=== PATIENT | female | born 1990 | race Caucasian/White ===

== ENCOUNTER → 2021-04-14 | Outpatient (CLI) | payer OTHER ==
[2021-04-14 15:29] VITALS: BP 156/93; PULSE 93; RESP 18; TEMP 98.3; BMI 48.5
--- NOTE | 2021-04-14 15:39 | P.HPBAR ---
Bariatric H&P - History & Physicial H&P Date: 04/14/21 History & Physicial: Visit/CC: initial visit Patient initial contact: Initial weight: Initial weight in pounds: Height: 5 ft 10.5 in Initial BMI: Last weight: Current weight: 155.582 kg Current weight in pounds: 343.00 Current BMI: 48.5 [place] body weight (based on NIH guidelines): 69.173 kg Excess body weight loss: The patient is a 31 year-old F who presents for Bariatric Assessment. Needs 6 months of weight loss. PCP is Charlene. Highest weight is 354 pounds. She has tried beach body, keto diet. Most weight loss of 20 pounds with keto diet. Parents, aunts, uncles and grandparents with weight loss. No weight loss surgeries in the family. She has lower back pain, right more than left knee. No hip pain. She has both ankle pain. No DVTs in the family. No colitis in the family. No bleeding problems. She has heartburn since 2016. She is looking into the gastric bypass. She snores. No recent test for sleep apnea. She has family history of diabetes. No stomach or esophageal cancer. She has troubles swallowing in the upper throat. Recommend EGD with rigid dilation for upper throat. All questions addressed. MBSC deferred. 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 pre-eclamspia. History of Any Multi-Drug Resistant Organisms: None Reported Past Surgical History: Adenoidectomy, Appendectomy, Cardiac Ablation, Tonsillectomy Additional Past Surgical History / Comment(s): emergency D & C - 2016. appendectomy - 2004. cardiac ablation - 2019. Past Anesthesia/Blood Transfusion Reactions: Previous Problems w/ Anesthesia Past Psychological History: Anxiety, Bipolar Additional Psychological History / Comment(s): bipolar 1. Smoking Status: Former smoker Past Alcohol Use History: Occasional Past Drug Use History: Marijuana Additional Drug Use History / Comment(s): occasional marijuana - "couple times a month". Surgical - Exam Vital Signs Temp Pulse Resp BP 98.3 F 93 18 156/93 04/14/21 15:07 04/14/21 15:07 04/14/21 15:07 04/14/21 15:07 Bariatric Checklist Checklist: Plan: Checklist: EGD: 1. Hiatal hernia: 2. H. Pylori: HgbA1c: Vitamin D: Smoking: Primary care physician referral: TOBY Rodriges ([place]) Psychiatry clearance: Cardiology clearance: Sleep study: Diet journal: VTE risk score: VTE risk level: Rehab needs at discharge:
[2021-04-14 17:04] LABS: HCT 36.8 % (34.0-46.0); MCH 26.5 pg (25.0-35.0); MCHC 32.6 g/dL (31.0-37.0); MCV 81.2 fL (80.0-100.0); Mean Platelet Volume 7.8; Platelet Count 272 k/uL (150-450); RBC 4.53 m/uL (3.80-5.40); RDW 14.2 % (11.5-15.5); WBC 9.8 k/uL (3.8-10.6)
[2021-04-14 17:29] LABS: INR 0.9 (<1.2); Partial Thromboplastin Time 24.7 sec (22.0-30.0); Prothrombin Time 10.1 sec (9.0-12.0)
[2021-04-15 04:51] LABS: % Iron Saturation 7.27 (12.00-45.00); ALT 19 U/L (8-44); AST 16 U/L (13-35); African American GFR (CKD) 111.7 (60.0-200.0); Albumin 4.3 g/dL (3.8-4.9); Albumin/Globulin Ratio 1.69 (1.60-3.17); Alkaline Phosphatase 66 U/L (41-126); BUN/Creat Ratio 11.27 Ratio (12.00-20.00); Blood Urea Nitrogen 9.3 mg/dL (9.0-27.0); Calcium 9.1 mg/dL (8.7-10.3); Carbon Dioxide 24.1 mmol/L (20.0-27.5); Chloride 103 mmol/L (96-109); Globulin 2.5 g/dL (1.6-3.3); Glucose 82 mg/dL (70-110); Iron 29 ug/dL (50-170); LDL Cholesterol,Calculated 121.2 mg/dL (0.0-131.0); Magnesium 2.3 mg/dL (1.5-2.4); Non-African American GFR(CKD) 96.4 (60.0-200.0); Phosphorus 3.6 mg/dL (2.4-5.1); Potassium 4.4 mmol/L (3.5-5.5); Prealbumin 18.8 mg/dL (18.0-42.0); Sodium 139 mmol/L (135-145); Total Bilirubin <0.20 mg/dL (0.30-1.20); Total Iron Binding Capacity 403 ug/dL (228-460); Total Protein 6.8 g/dL (6.2-8.2)
[2021-04-15 13:24] LABS: Zinc, Serum 54 ug/dL (60-130)
[2021-04-16 07:38] LABS: Vit B1(Thiamine) 77 ug/L (38-122)
[2021-04-16 07:50] LABS: Vitamin A 38 ug/dL (38-106)
== END | disposition home or self-care (01) ==
LOC: BARWHC3 14:50
PROVIDERS: ATTEND Surgery Plastic and Reconstructive Surgery
DX: E66.01 Morbid (severe) obesity due to excess calories (principal); E89.1 Postprocedural hypoinsulinemia; D50.8 Other iron deficiency anemias; K90.89 Other intestinal malabsorption; E55.9 Vitamin D deficiency, unspecified; K74.1 Hepatic sclerosis; N19 Unspecified kidney failure; K50.90 Crohn's disease, unspecified, without complications
CPT/HCPCS: 84255; 84134; 84425; 80061; 80053; 82607; 82728; 82525; 82746; 83540; 83550; 83735; 84100; 84443; 84590; 84630; 85027; 85610; 85730; 82306; 83970; 83036; 80307; 93005; G0480; G0482; G0463; 80323; 99203

== ENCOUNTER → 2021-09-08 | Outpatient (CLI) | payer OTHER ==
--- NOTE | 2021-09-08 18:39 | CONS ---
CONSULTATION DATE OF SERVICE: 09/08/2021 This 31-year-old lady has been evaluated in Sleep Center for obstructive sleep apnea- hypopnea syndrome. The patient was referred to Sleep Center as a part of preparation for bariatric surgery. HISTORY OF PRESENT ILLNESS/SLEEP-WAKE EVALUATION: The patient's usual sleep schedule is from 10 p.m. to 6 a.m. basically 7 days a week. Sometimes she has problems with falling asleep, has a TV set in the bedroom. She sleeps in different positions. She snores and wakes up from sleep 3 times with 2 episodes of nocturia. No history of hypnagogic hallucinations, sleep paralysis or cataplexy. During the day the patient usually does not take any naps. [place] Sleepiness Scale is 6. PAST MEDICAL HISTORY: Positive for supraventricular tachycardia, acid reflux, bipolar disorder. PAST SURGICAL HISTORY: Appendectomy, cardiac ablation for supraventricular tachycardia. MEDICATIONS: 1. Lamictal 250 mg twice a day. 2. Protonix 40 mg once a day. 3. Klonopin 0.5 mg on p.r.n. basis. SOCIAL HISTORY: Positive for smoking in the past, about 5 pack/years. Alcohol consumption occasional. FAMILY HISTORY: Positive for sleep apnea, snoring, heart problems, hypertension, mental illness. REVIEW OF SYSTEMS: Multiple awakenings from sleep, snoring. No fevers. No double vision. No recent chest pain. No shortness of breath. No abdominal pain. No bleeding episodes. No blood in the urine. No seizure episodes. PHYSICAL EXAMINATION: GENERAL: Pleasant lady without distress. VITAL SIGNS: BP 121/85, HR 91, RR 16, height 5 feet 10 inches, weight 332.2, body mass index 47.6, temperature 97.3, oxygen saturation at room air 97%. HEENT: PERRLA, EOMI, evaluation of oropharynx showed tongue protrudes midline. Low position of soft palate; Mallampati III. NECK: Supple, no JVD. Thyroid is not palpable. Neck is wide; 20 inches in circumference. LUNGS: Clear to percussion and to auscultation. Good air exchange. No wheezing or rhonchi. HEART: S1, S2 regular. No murmurs, gallops, or rubs. ABDOMEN: Obese. EXTREMITIES: No clubbing or cyanosis. SECOND CLASS WELDER: Awake, alert, and oriented X3. Cranial nerves 2 to 7 intact. There is no fasciculation or atrophy. noted. No focal deficits observed. IMPRESSION: 1. Snoring, multiple awakenings from sleep, low position of soft palate, wide neck, 20 inches in circumference; obstructive sleep apnea-hypopnea syndrome. 2. Obesity; BMI 47.6. 3. History of supraventricular tachycardia, status post cardiac ablation. 4. Acid reflux. 5. History of bipolar 1. 6. Status post appendectomy. PLAN: 1. Polysomnography for evaluation of patient's breathing during sleep. 2. CPAP/BiPAP titration if sleep study confirms obstructive sleep apnea-hypopnea syndrome. 3. Preferable position during sleep on the side. 4. No driving if patient feels any sleepiness. 5. I will see patient for follow up visit to explain results of testing and following plan. Thank you very much for referring this patient for consultation. Sincerely, Oscar Mahoney MD, PhD, FAASM Diplomat of [employer] Sleep Medicine Board of [place] [employer] [facility] [place] MMODL / IJN: [id number] /
== END | disposition home or self-care (01) ==
LOC: SLEEP 11:34
PROVIDERS: ATTEND Internal Medicine
DX: G47.33 Obstructive sleep apnea (adult) (pediatric) (principal); E66.9 Obesity, unspecified; K21.9 Gastro-esophageal reflux disease without esophagitis; Z68.42 Body mass index [BMI] 45.0-49.9, adult; Z86.79 Personal history of other diseases of the circulatory system; Z86.69 Personal history of other diseases of the nervous system and sense organs; Z90.49 Acquired absence of other specified parts of digestive tract
CPT/HCPCS: 99211

== ENCOUNTER 2021-10-06 10:28 | Day surgery (SDC) | payer OTHER ==
[~2021-10-06 10:28] MED LIST: LACTATED RINGERS 1,000 ML IV SCH; LIDOCAINE 1% (10MG/ML) FOR IV START INTRADERMA PRN
[2021-10-06 10:42] VITALS: TEMP 98
[2021-10-06] MEDS ORDERED: LACTATED RINGERS 1,000 ML IV ONE (10:42)
[2021-10-06] MEDS ORDERED: PROPOFOL 10 MG/ML 20 ML VIAL IV ONE (11:12)
[2021-10-06] MEDS ORDERED: LIDOCAINE 2% INJ 20 MG/ML (2 ML VIAL) ONE (11:12)
--- NOTE | 2021-10-06 11:32 | P.GSHP ---
History of Present Illness H&P Date: 10/06/21 CHIEF COMPLAINT: GERD HISTORY OF PRESENT ILLNESS: The patient is a 31-year-old female who presents reports gastroesophageal reflux disease. Upper endoscopy was offered for further evaluation and management. PAST MEDICAL HISTORY: Please see list. PAST SURGICAL HISTORY: Please see list. MEDICATIONS: Please see list. ALLERGIES: Please see list. SOCIAL HISTORY: No illicit drug use FAMILY HISTORY: No reports of Crohn disease or ulcerative colitis. REVIEW OF ORGAN SYSTEMS: CONSTITUTIONAL: No reports of fevers or chills. GI: Denies any blood in stools or constipation. PHYSICAL EXAM: VITAL SIGNS: Stable GENERAL: Well-developed and pleasant in no acute distress. HEENT: No scleral icterus. Extraocular movements grossly intact. Moist buccal mucosa. NECK: Supple without lymphadenopathy. CHEST: Unlabored respirations. Equal bilateral excursions. CARDIOVASCULAR: Regular rate and rhythm. Distal 2+ pulses. ABDOMEN: Soft, nondistended. MUSCULOSKELETAL: No clubbing, cyanosis, or edema. ASSESSMENT: 1. Gastroesophageal reflux disease PLAN: 1. Recommend proceeding with an upper endoscopy Past Medical History Past Medical History: Blood Disorder, GERD/Reflux, Hypertension, Sleep Apnea/CPAP/BIPAP, Supraventricular Tachycardia (SVT) Additional Past Medical History / Comment(s): anemia. recent sleep study & will be having 2nd study soon to be fitted for bipap History of Any Multi-Drug Resistant Organisms: None Reported Past Surgical History: Adenoidectomy, Appendectomy, Cardiac Ablation, Tonsillectomy Additional Past Surgical History / Comment(s): emergency D & C - 2016. appendectomy - 2004. cardiac ablation - 2019. Past Anesthesia/Blood Transfusion Reactions: Previous Problems w/ Anesthesia Additional Past Anesthesia/Blood Transfusion Reaction / Comment(s): took awhile to come out of anesthesia after ablation because gave "pain" meds prior & then was put out Smoking Status: Former smoker Medications and Allergies Home Medications Medication Instructions Recorded Confirmed Type clonazePAM [KlonoPIN] 0.5 mg PO BID PRN 04/14/21 10/05/21 History lamoTRIgine [LaMICtal] 250 mg PO BID 04/14/21 10/05/21 History Allergies Allergy/AdvReac Type Severity Reaction Status Date / Time No Known Allergies Allergy Verified 05/24/21 09:39 Surgical - Exam Vital Signs Temp Pulse Resp BP Pulse Ox 98 F 88 18 163/93 98 10/06/21 10:41 10/06/21 10:41 10/06/21 10:41 10/06/21 10:41 10/06/21 10:41
--- NOTE | 2021-10-06 11:33 | P.PCN ---
Date of Procedure: 10/06/21 Description of Procedure: PREOPERATIVE DIAGNOSIS: Gastroesophageal reflux disease. Morbid obesity. POSTOPERATIVE DIAGNOSIS: Gastroesophageal reflux disease. Morbid obesity. Gastritis. OPERATION: Esophagogastroduodenoscopy with biopsies along antrum and duodenum SURGEON: Janet Jane MD ANESTHESIA: MAC. INDICATIONS: The patient is a 31-year-old female who presents with reflux disease. Benefits and risks of the procedure were described. Informed consent was obtained. DESCRIPTION: The patient was brought into the endoscopy suite and laid in the left lateral decubitus position. An Olympus gastroscope was passed along the posterior oropharynx down to the distal esophagus where the squamocolumnar junction was encountered at 42 cm from the incisors. The stomach was entered and no bile reflux was found. Additional findings are listed below. Biopsies with cold forceps were obtained of the antrum. The first through third portion of the duodenum was examined. Retroflexion of the scope confirmed Hill grade 2 lower esophageal valve. The squamocolumnar junction demonstrated LA grade B erosive esophagitis. The stomach was desufflated. The patient tolerated the procedure well. FINDINGS: Squamocolumnar junction 42 cm from the incisors. Diaphragmatic hiatus at 42 cm. Hill grade 2 lower esophageal valve. LA grade B erosive esophagitis. Biopsies obtained of the duodenum for duodenitis Chronic gastritis RECOMMENDATIONS: Upper endoscopy as needed. Plan - Discharge Summary Discharge Rx Participant: No New Discharge Prescriptions: Continue clonazePAM [KlonoPIN] 0.5 mg PO BID PRN PRN Reason: Anxiety lamoTRIgine [LaMICtal] 250 mg PO BID Discharge Medication List clonazePAM [KlonoPIN] 0.5 mg PO BID PRN 04/14/21 [History] lamoTRIgine [LaMICtal] 250 mg PO BID 04/14/21 [History] [place] [facility] [facility] [place] [facility] [place] Patient Instructions/Handouts: *Sur[facility] - (Anesthesia) Endoscopy Discharge Instructions Discharge Disposition: HOME SELF-CARE
[2021-10-06 12:13] VITALS: BP 141/95; PULSE 71; RESP 16
== END 2021-10-06 12:18 | disposition home or self-care (01) ==
LOC: ORWHC2ENDO 10:28
PROVIDERS: ATTEND Surgery Plastic and Reconstructive Surgery
DX: K21.9 Gastro-esophageal reflux disease without esophagitis (principal); E66.01 Morbid (severe) obesity due to excess calories; Z68.42 Body mass index [BMI] 45.0-49.9, adult; I10 Essential (primary) hypertension; G47.33 Obstructive sleep apnea (adult) (pediatric); I47.1 Supraventricular tachycardia; D64.9 Anemia, unspecified; Z90.49 Acquired absence of other specified parts of digestive tract; Z98.890 Other specified postprocedural states; Z79.899 Other long term (current) drug therapy
CPT/HCPCS: 81025; 88305; 43239; J2704; J2001

== ENCOUNTER → 2021-11-22 | Outpatient (CLI) | payer OTHER ==
[2021-11-22 11:42] VITALS: BMI 44.4
[2021-11-22 12:31] LABS: INR 0.9 (<1.2); Partial Thromboplastin Time 24.1 sec (22.0-30.0); Prothrombin Time 10.3 sec (9.0-12.0)
[2021-11-22 14:20] LABS: HCT 39.6 % (37.2-46.3); HGB 12.2 g/dL (12.0-15.0); MCH 25.8 pg (27.0-32.0); MCHC 30.8 g/dL (32.0-37.0); MCV 83.7 fL (80.0-97.0); Mean Platelet Volume 10.4 fL (9.5-12.2); NRBC Per 100 WBC 0 /100 WBCS (0.0-0.0); Platelet Count 311 X 10*3/uL (140-440); RBC 4.73 X 10*6/uL (4.10-5.20); RDW 13.2 % (11.5-14.5)
[2021-11-22 14:38] LABS: % Iron Saturation 9.84 (12.00-45.00); ALT 20 U/L (8-44); AST 19 U/L (13-35); African American GFR (CKD) 104.5 (60.0-200.0); Albumin 4.5 g/dL (3.8-4.9); Albumin/Globulin Ratio 1.51 (1.60-3.17); Alkaline Phosphatase 64 U/L (41-126); BUN/Creat Ratio 10.86 Ratio (12.00-20.00); Blood Urea Nitrogen 9.4 mg/dL (9.0-27.0); Calcium 9.7 mg/dL (8.7-10.3); Carbon Dioxide 23.9 mmol/L (20.0-27.5); Chloride 106 mmol/L (96-109); Ferritin 89.9 ng/mL (10.0-291.0); Glucose 87 mg/dL (70-110); Iron 30 ug/dL (50-170); Magnesium 2.4 mg/dL (1.5-2.4); Non-African American GFR(CKD) 90.2 (60.0-200.0); Phosphorus 3.6 mg/dL (2.4-5.1); Potassium 4.5 mmol/L (3.5-5.5); Sodium 141 mmol/L (135-145); Total Iron Binding Capacity 308 ug/dL (228-460); Total Protein 7.5 g/dL (6.2-8.2)
[2021-11-22 15:15] LABS: Chol/HDL Ratio 7.08 Ratio; LDL Cholesterol,Calculated 122.5 mg/dL (0.0-131.0)
[2021-11-23 11:50] LABS: Zinc, Serum 71 ug/dL (60-130)
[2021-11-24 10:36] LABS: Vitamin A 47 ug/dL (38-106)
== END | disposition home or self-care (01) ==
LOC: BARWHC3 08:47
PROVIDERS: ATTEND Surgery Plastic and Reconstructive Surgery
DX: E66.01 Morbid (severe) obesity due to excess calories (principal); Z71.3 Dietary counseling and surveillance
CPT/HCPCS: 80053; 80061; 82306; 82525; 82607; 82728; 82746; 83036; 83540; 83550; 83735; 83970; 84100; 84134; 84255; 84425; 84443; 84590; 84630; 85027; 85610; 85730; 97804

== ENCOUNTER → 2021-11-22 | Outpatient (CLI) | payer OTHER ==
--- NOTE | 2021-11-22 07:34 | US ---
EXAMINATION TYPE: US gallbladder DATE OF EXAM: 11/22/2021 COMPARISON: NONE CLINICAL HISTORY: R10.11 RIGHT UPPER QUADRANT PAIN. pre bariatric testing, no symptoms EXAM MEASUREMENTS: Liver Length: 20.6 cm Gallbladder Wall: 0.3 cm CBD: 0.6 cm Right Kidney: 11.7 x 4.7 x 4.8 cm Pancreas: not seen due to bowel gas Liver: difficult to penetrate, enlarged Gallbladder: wnl Evidence for sonographic Vázquez's sign: no CBD: wnl Right Kidney: wnl IMPRESSION: 1. Hepatomegaly with underlying probable hepatic steatosis.
== END | disposition home or self-care (01) ==
LOC: RADUSWWP 07:00
PROVIDERS: ATTEND Surgery Plastic and Reconstructive Surgery
DX: R10.11 Right upper quadrant pain (principal); E66.01 Morbid (severe) obesity due to excess calories; D50.8 Other iron deficiency anemias; D50.9 Iron deficiency anemia, unspecified; K91.2 Postsurgical malabsorption, not elsewhere classified; E44.1 Mild protein-calorie malnutrition; E45 Retarded development following protein-calorie malnutrition; E46 Unspecified protein-calorie malnutrition; E55.9 Vitamin D deficiency, unspecified; K74.1 Hepatic sclerosis; N19 Unspecified kidney failure; T56.894A Toxic effect of other metals, undetermined, initial encounter; K50.90 Crohn's disease, unspecified, without complications
CPT/HCPCS: 76705

== ENCOUNTER → 2022-03-28 | Outpatient (CLI) | payer OTHER ==
--- NOTE | 2022-03-28 10:38 | XR ---
EXAMINATION TYPE: XR chest 1V DATE OF EXAM: 03/28/2022 COMPARISON: NONE HISTORY: Preop TECHNIQUE: Single frontal view of the chest is obtained. FINDINGS: There is no focal air space opacity, pleural effusion, or pneumothorax seen. The cardiac silhouette size is within normal limits. The osseous structures are intact. IMPRESSION: No acute process.
[2022-03-28 15:35] LABS: Basophils # (A) 0.05 X 10*3/uL (0.00-0.10); Basophils % (A) 0.6 %; Eosinophils % (A) 2.6 %; HCT 38.9 % (37.2-46.3); HGB 12.5 g/dL (12.0-15.0); Immature Grans, Automated 0.3 %; Lymphocytes # (A) 1.72 X 10*3/uL (0.90-5.00); Lymphocytes % (A) 22.1 %; MCH 26.2 pg (27.0-32.0); MCHC 32.1 g/dL (32.0-37.0); MCV 81.4 fL (80.0-97.0); Mean Platelet Volume 10.4 fL (9.5-12.2); Monocytes # (A) 0.57 X 10*3/uL (0.20-1.00); Monocytes % (A) 7.3 %; NRBC Per 100 WBC 0 /100 WBCS (0.0-0.0); Neutrophils # (A) 5.21 X 10*3/uL (1.80-7.70); Neutrophils % (A) 67.1 %; Platelet Count 352 X 10*3/uL (140-440); RBC 4.78 X 10*6/uL (4.10-5.20); RDW 13.9 % (11.5-14.5); WBC 7.77 X 10*3/uL (4.50-10.00)
[2022-03-28 16:15] LABS: African American GFR (CKD) 114.7 (60.0-200.0); Albumin 4.7 g/dL (3.8-4.9); Albumin/Globulin Ratio 1.96 (1.60-3.17); Anion Gap 10.8 mmol/L (10.00-18.00); BUN/Creat Ratio 14.5 Ratio (12.00-20.00); Blood Urea Nitrogen 11.6 mg/dL (9.0-27.0); Calcium 9.7 mg/dL (8.7-10.3); Carbon Dioxide 25.2 mmol/L (20.0-27.5); Globulin 2.4 g/dL (1.6-3.3); Non-African American GFR(CKD) 98.9 (60.0-200.0); Potassium 4.6 mmol/L (3.5-5.5); Total Bilirubin 0.2 mg/dL (0.30-1.20); Total Protein 7.1 g/dL (6.2-8.2)
== END | disposition home or self-care (01) ==
LOC: LABPAT 09:58
PROVIDERS: ATTEND Surgery Plastic and Reconstructive Surgery
DX: Z01.812 Encounter for preprocedural laboratory examination (principal); G47.30 Sleep apnea, unspecified
CPT/HCPCS: 71045; 80053; 85025

== ENCOUNTER → 2022-09-28 | Outpatient (CLI) | payer OTHER | END | disposition home or self-care (01) | LOC: LABWHC1 16:18 | PROVIDERS: ATTEND Surgery Plastic and Reconstructive Surgery | DX: Z53.9 Procedure and treatment not carried out, unspecified reason (principal) ==

== ENCOUNTER → 2022-09-28 | Outpatient (CLI) | payer OTHER ==
[2022-09-28 15:23] VITALS: BP 157/84; PULSE 89; RESP 12; TEMP 9805; BMI 46.2
--- NOTE | 2022-09-28 16:07 | P.BASOAP ---
Subjective Progress Note Date: 09/28/22 Settled with gastric bypass with all risks described. Plan for gastric bypass. FDD plan described. Needs cardiac clearance and labs. Objective - Vital Signs Vital signs: Vital Signs Temp 9805 F H 09/28/22 15:11 Pulse 89 09/28/22 15:11 Resp 12 09/28/22 15:11 BP 157/84 09/28/22 15:11 Pulse Ox FiO2 Intake & Output 09/27/22 09/28/22 09/28/22 18:59 06:59 18:59 Weight 148.143 kg Assessment/Plan Plan: Date: 09/28/22 Initial Weight: Initial BMI: Current Weight: 148.143 kg Current BMI: 46.2 Type of Surgery: Total Volume in Band: Previous Volume: Volume Removed: Volume Added: Band Size:
== END ==
LOC: BARWHC3 14:27
PROVIDERS: ATTEND Surgery Plastic and Reconstructive Surgery
DX: E66.01 Morbid (severe) obesity due to excess calories (principal); Z68.42 Body mass index [BMI] 45.0-49.9, adult
CPT/HCPCS: 99211

== ENCOUNTER → 2022-11-14 | Outpatient (CLI) | payer OTHER ==
[2022-11-15 02:25] LABS: Basophils # (A) 0.04 X 10*3/uL (0.00-0.10); Basophils % (A) 0.5 %; Eosinophils # (A) 0.11 X 10*3/uL (0.04-0.35); Eosinophils % (A) 1.5 %; HCT 38.8 % (37.2-46.3); HGB 12.4 d/dL (12.0-15.0); Lymphocytes # (A) 1.73 X 10*3/uL (0.90-5.00); Lymphocytes % (A) 23.2 %; MCH 26.3 pg (27.0-32.0); MCV 82.2 FL (80.0-97.0); Mean Platelet Volume 10.8 FL (9.5-12.2); Monocytes % (A) 6.7 %; NRBC Per 100 WBC 0 X 10*3/uL (0.00-0.01); Neutrophils # (A) 5.06 X 10*3/uL (1.80-7.70); Platelet Count 290 X 10*3/uL (140-440); RBC 4.72 X 10*6/uL (4.10-5.20); RDW 13.9 % (11.5-14.5); WBC 7.45 X 10*3/uL (4.50-10.00)
[2022-11-15 02:33] LABS: ALT 30 U/L (8-44); AST 26 U/L (13-35); Albumin 4.7 d/dL (3.8-4.9); Albumin/Globulin Ratio 1.88 Ratio (1.60-3.17); Alkaline Phosphatase 58 U/L (41-126); Blood Urea Nitrogen 13.6 mg/dL (9.0-27.0); Calcium 9.9 mg/dL (8.7-10.3); Carbon Dioxide 23.1 mmol/L (21.6-31.8); Chloride 103 mmol/L (96-109); Globulin 2.5 d/dL (1.6-3.3); Glucose 81 mg/dL (70-110); Sodium 141 mmol/L (135-145); Total Bilirubin 0.3 mg/dL (0.3-1.2); Total Protein 7.2 d/dL (6.2-8.2)
== END | disposition home or self-care (01) ==
LOC: LABPAT 16:07
PROVIDERS: ATTEND Surgery Plastic and Reconstructive Surgery
DX: Z01.812 Encounter for preprocedural laboratory examination (principal)
CPT/HCPCS: 80053; 85025

== ENCOUNTER → 2022-11-14 | Outpatient (CLI) | payer OTHER ==
--- NOTE | 2022-11-14 21:26 | XR ---
EXAMINATION TYPE: XR chest 1V DATE OF EXAM: 11/14/2022 COMPARISON: 03/28/2022 HISTORY: Preop TECHNIQUE: Single frontal view of the chest is obtained. FINDINGS: There is no focal air space opacity, pleural effusion, or pneumothorax seen. The cardiac silhouette size is within normal limits. The osseous structures are intact. IMPRESSION: No acute process.
== END | disposition home or self-care (01) ==
LOC: RADXRMAIN 17:39
PROVIDERS: ATTEND Surgery Plastic and Reconstructive Surgery
DX: G47.33 Obstructive sleep apnea (adult) (pediatric) (principal)
CPT/HCPCS: 71045

== ENCOUNTER 2022-11-21 08:13 | Inpatient (IN) | payer OTHER ==
[~2022-11-21 08:13] MED LIST changes: +HEPARIN SODIUM,PORCINE/PF 5,000 UNIT/0.5 ML SYRINGE SQ PRN; +HYDROmorphone 0.5 MG/0.5 ML SYRINGE IVP PRN; -LACTATED RINGERS 1,000 ML IV SCH; +ONDANSETRON 4 MG/2 ML VIAL IVP PRN; +SCOPOLAMINE 1 MG/72 HR PATCH TRANSDERM ONE; +ceFAZolin 3 GM in SODIUM CHLORIDE 0.9% 100 ML IVPB PRN; +droPERidol 5 MG/2 ML VIAL IVP ONE
[2022-11-21] MEDS: DEXAMETHASONE SOD PHOSPHATE 4 MG/ML 1 ML VIAL IV ONE ×2 (09:09→16:49)
[2022-11-21] MEDS: LACTATED RINGERS 1,000 ML IV SCH (09:09)
--- NOTE | 2022-11-21 09:21 | P.GSHP ---
History of Present Illness H&P Date: 11/21/22 CHIEF COMPLAINT: Morbid obesity HISTORY OF PRESENT ILLNESS: Ana Alanis is a 32-year-old female who comes with lifelong morbid obesity. She is looking into the gastric bypass. As a result of her morbid obesity, she has developed hypertensive heart disease, osteoarthritis, including obstructive sleep apnea. She has completed assessment and treatment for her sleep apnea. She presents for options for surgical weight loss. At height of 5 feet 10.5 inches, her ideal body weight is 173 pounds. Highest weight of 354 pounds, BMI 50.2. She comes in 310 pounds from 316 pounds, in 1 year. She has lost 6 pounds in 1 year. Her body mass index is 44.8. She is 137 pounds overweight. PAST MEDICAL HISTORY: 1. Morbid obesity due to excess calories 2. Body mass index of 50.2 3. Gastroesophageal reflux disease 4. Hypertensive heart disease 5. Supraventricular tachycardia 6. Anemia 7. History of pre-eclampsia 8. Anxiety 9. Bipolar disorder 10. Osteoarthritis bilateral knees 11. Obstructive sleep apnea 12. Osteoarthritis of the lower back 13. Osteoarthritis of the bilateral knee PAST SURGICAL HISTORY: 1. Adenoidectomy 2. Appendectomy 3. Cardiac Ablation 4. Tonsillectomy HOME MEDICATIONS: Home Medications Medication Instructions Recorded Confirmed ARIPiprazole [Abilify] 5 mg PO DAILY 04/14/21 05/24/21 Pantoprazole Sodium [Protonix] 20 mg PO DAILY 04/14/21 05/24/21 clonazePAM [KlonoPIN] 0.5 mg PO BID PRN 04/14/21 05/24/21 lamoTRIgine [LaMICtal] 200 mg PO BID 04/14/21 05/24/21 ALLERGIES: Allergies Allergy/AdvReac Type Severity Reaction Status Date / Time No Known Allergies Allergy Verified 05/24/21 09:39 SOCIAL HISTORY: Past tobacco use. FAMILY HISTORY: No family history of ulcerative colitis disease or Crohn's disease. Family history of morbid obesity. No lupus in the family. No reports of stomach or esophageal cancer. REVIEW OF ORGAN SYSTEMS: CONSTITUTIONAL: At height of 5 feet 10.5 inches, her ideal body weight is 173 pounds. Highest weight of 354 pounds, BMI 50.2. She comes in 342 pounds. Her body mass index is 48.5. She is 169 pounds overweight. HEENT: Denies any active troubles with vision or hearing. Has troubles with swallowing. ENDOCRINE: Denies diabetes. No hypothyroidism. CARDIOVASCULAR: Has hypertensive heart disease. RESPIRATORY: Denies asthma. Has sleep apnea and daytime somnolence. GASTROINTESTINAL: Denies any bright red blood per rectum. No diarrhea. No constipation. Has gastroesophageal reflux disease. GENITOURINARY: Denies bladder urgency. No recent blood in urine MUSCULOSKELETAL: Has lower back pain and joint pain. Has osteoarthritis of the knees. NEURO: No headaches. No seizure disorders. PSYCH: Has depression. No suicidal ideation. Has anxiety and bipolar disorder RHEUMATOLOGIC: No lupus. No rheumatoid arthritis. HEMATOLOGIC: Denies any abnormal bleeding or bruising. SKIN: No rash. No skin cancer. PHYSICAL EXAM: VITAL SIGNS: Height 5 foot 10.5 inches, weight 343 pounds. BMI 48.5 GENERAL: Well-developed in no acute distress. HEENT: No scleral icterus. Extraocular movements grossly intact. Hears conversational speech. No nasal drainage. NECK: Supple without lymphadenopathy. CHEST: Nonlabored respirations with equal bilateral excursions. CARDIOVASCULAR: Regular rate and regular rhythm. Distal 2+ pulses. ABDOMEN: Obese, soft, nontender, nondistended. MUSCULOSKELETAL: No clubbing, cyanosis. NEURO: No focal or lateralizing signs. Cranial nerves 2 through 12 grossly within normal limits. PSYCH: Appropriate affect. Alert and oriented to person, place and time. SKIN: Good skin turgor. Well perfused. LABS: Reviewed. Iron low. Vitamin D low. Zinc low. UDS positive for anxiolytics. Treated for iron vitamin D and zinc deficiency EKG: Boderline. Possible left atrial enlargement. Cardiac clearance obtained EGD REPORT: Squamocolumnar junction 42 cm from the incisors. Diaphragmatic hiatus at 42 cm. Hill grade 2 lower esophageal valve. LA grade B erosive esophagitis. Biopsies obtained of the duodenum for duodenitis Chronic gastritis REPORT: Sleep apnea report with Obstructive sleep apnea hypopnea syndrome September 2021. ASSESSMENT: 1. Morbid obesity due to excess calories 2. Body mass index of 50.2 3. Gastroesophageal reflux disease 4. Hypertensive heart disease 5. Supraventricular tachycardia 6. Anemia 7. History of pre-eclampsia 8. Anxiety 9. Bipolar disorder 10. Osteoarthritis bilateral knees 11. Obstructive sleep apnea 12. Osteoarthritis of the lower back 13. Osteoarthritis of the bilateral knee 14. Dysphagia 15. Iron deficiency 16. Vitamin D deficiency 17. Zinc deficiency PLAN: 1. Bariatric options between a sleeve, band and a Carlos-en-Y gastric bypass were reviewed in detail. The patient elected for a gastric bypass Robotic assisted approach described. 2. The [place] [facility] Data was also reviewed with benefits and risks as described. 3. An 8 page second-generation bariatric consent form was reviewed in detail including potential of bleeding, infection, leaks, adequate weight loss, nutritional deficiencies which the patient demonstrated understanding of the risks. 4. A 2 week high-protein low caloric 800 kcal diet described to address hepatomegaly. 5. Preoperative labs including complete metabolic panel and CBC with type and screen recommended. 6. DVT prophylaxis per [place] [facility]. 7. Antibiotic prophylaxis. 8. Inpatient hospitalization anticipated for more than 2 nights. 9. All questions and concerns were addressed with the patient. 10. The patient is at elevated risk for perioperative complications with sleep apnea and hypertensive heart disease. 11. Overall, patient has expressed understanding of bariatric care including postoperative diet and commitment of lifestyle. Patient should benefit from surgical intervention for correction of morbid obesity. 12. She is elevated risk due to pre-existing comorbid conditions Past Medical History Past Medical History: Blood Disorder, GERD/Reflux, Hypertension, Supraventricular Tachycardia (SVT) Additional Past Medical History / Comment(s): anemia. NO MEDS NEEDED FOR HTN, History of Any Multi-Drug Resistant Organisms: None Reported Past Surgical History: Adenoidectomy, Appendectomy, Cardiac Ablation, Tonsillectomy Additional Past Surgical History / Comment(s): emergency D & C - 2016. appendectomy - 2004. cardiac ablation - 2019. EGD Past Anesthesia/Blood Transfusion Reactions: Previous Problems w/ Anesthesia Additional Past Anesthesia/Blood Transfusion Reaction / Comment(s): SLOW TO COME OUT OF ANESTHESIA Smoking Status: Former smoker - Past Family History Mother Family Medical History: No Reported History Medications and Allergies Home Medications Medication Instructions Recorded Confirmed Type lamoTRIgine [LaMICtal] 250 mg PO BID 04/14/21 11/15/22 History clonazePAM [KlonoPIN] 0.5 mg PO DIRECTED PRN 09/28/22 11/15/22 History Pantoprazole [Protonix] 40 mg PO DAILY 11/15/22 11/15/22 History Allergies Allergy/AdvReac Type Severity Reaction Status Date / Time No Known Allergies Allergy Verified 11/15/22 14:09 Surgical - Exam Vital Signs Temp Pulse Resp BP Pulse Ox 97.8 F 87 16 149/72 97 11/21/22 09:00 11/21/22 09:00 11/21/22 09:00 11/21/22 09:00 11/21/22 09:00
[2022-11-21] MEDS ORDERED: MIDAZOLAM 2 MG/2 ML VIAL IVP ONE (09:25)
[2022-11-21] MEDS ORDERED: HYDROmorphone (PF) 1 MG/ML ONE (09:34)
[2022-11-21] MEDS ORDERED: MIDAZOLAM 2 MG/2 ML VIAL ONE (09:34)
[2022-11-21] MEDS ORDERED: ROCURONIUM 10 MG/ML (5 ML VIAL) IV ONE (09:34)
[2022-11-21] MEDS ORDERED: ESMOLOL 100 MG/10 ML VIAL ONE (09:34)
[2022-11-21] MEDS ORDERED: LIDOCAINE 2% INJ 20 MG/ML (2 ML VIAL) ONE (09:34)
[2022-11-21] MEDS ORDERED: PROPOFOL 10 MG/ML 20 ML VIAL IV ONE (09:34)
[2022-11-21] MEDS ORDERED: KETAMINE 10 MG/ML 20 ML VIAL ONE (09:34)
[2022-11-21] MEDS ORDERED: SUCCINYLCHOLINE CHLORIDE 200 MG/10 ML VIAL IV ONE (09:34)
[2022-11-21] MEDS ORDERED: fentaNYL (PF) 50 MCG/ML 2 ML AMP ONE (09:34)
[2022-11-21] MEDS ORDERED: LABETALOL 5 MG/ML VIAL MDV ONE (09:34)
--- NOTE | 2022-11-21 09:45 | P.HPADDEND ---
H&P Addendum H&P Addendum Date: 11/21/22 Benefits and risks of the procedure reviewed including possibility of intra- abdominal adhesions prohibiting completion of her gastric bypass. Options including lysis of adhesions with return to the operating room at a later date were reviewed versus sleeve gastrectomy at the time of her procedure. Patient elected for sleeve gastrectomy at the time of the procedure. Patient's mother and nurse at bedside present during conversation.
[2022-11-21] MEDS ORDERED: LIDOCAINE 2%-EPI 1:100,000 20 ML VIAL SQ ONE ×2 (10:09→10:27)
[2022-11-21] MEDS ORDERED: LACTATED RINGERS 1,000 ML IV ONE ×2 (11:15→14:55)
[2022-11-21] MEDS ORDERED: HYDROmorphone 0.5 MG/0.5 ML SYRINGE IVP ONE (15:10)
[2022-11-21] MEDS ORDERED: NALOXONE 0.4 MG/ML 1 ML VIAL IV PRN (15:22)
[2022-11-21] MEDS ORDERED: diphenhydrAMINE 50 MG/ML 1 ML VIAL IVP PRN (15:22)
[2022-11-21] MEDS ORDERED: SODIUM CHLORIDE 0.9% 2,000 ML IV ONE (15:22)
[2022-11-21] MEDS ORDERED: diphenhydrAMINE 50 MG/ML 1 ML VIAL IVP ONE (15:23)
--- NOTE | 2022-11-21 15:33 | P.OP ---
Date of Procedure: 11/21/22 Description of Procedure: SURGEON: ISABEL MCCABE MD PREOPERATIVE DIAGNOSES: 1. Morbid obesity due to excess calories 2. Body mass index of 50.2 3. Gastroesophageal reflux disease 4. Hypertensive heart disease 5. Supraventricular tachycardia 6. Anemia 7. History of pre-eclampsia 8. Anxiety 9. Bipolar disorder 10. Osteoarthritis bilateral knees 11. Obstructive sleep apnea 12. Osteoarthritis of the lower back 13. Osteoarthritis of the bilateral knee 14. Dysphagia 15. Iron deficiency 16. Vitamin D deficiency 17. Zinc deficiency POSTOPERATIVE DIAGNOSES: 1. Morbid obesity due to excess calories 2. Body mass index of 50.2 3. Gastroesophageal reflux disease 4. Hypertensive heart disease 5. Supraventricular tachycardia 6. Anemia 7. History of pre-eclampsia 8. Anxiety 9. Bipolar disorder 10. Osteoarthritis bilateral knees 11. Obstructive sleep apnea 12. Osteoarthritis of the lower back 13. Osteoarthritis of the bilateral knee 14. Dysphagia 15. Iron deficiency 16. Vitamin D deficiency 17. Zinc deficiency 18. Pelvic adhesions, lower midline 19. Internal hernia, right lower quadrant 20. Fatty liver disease of hepatomegaly 21. Splenomegaly 22. Personal history of mononucleosis OPERATION: 1. Robotic assisted da Zen Xi laparoscopic lysis of adhesions, over 30 minutes 2. Robotic assisted da Zen Xi laparoscopic Zina-en-Y gastric bypass, 100 cm antecolic antegastric Zina limb, with 25 mm EEA. 2. Intraoperative esophagogastrojejunoscopy. ANESTHESIA: GETA and local ESTIMATED BLOOD LOSS: 5 mL SPECIMENS REMOVED: None. COMPLICATIONS: NONE. Operative Findings: 1. Biliopancreatic limb 60 cm 2. Bypass performed using 100 cm zina limb secondary to avoid increased tension at 150 cm. 3. Jejunojejunostomy defect closed using 2-0 V-LOC, green 4. Leak test negative with gastrojejunal anastomosis patent and hemostatic. 5. Reinforcement sutures were placed along the gastrojejunal anastomosis at 9:00, 12:00 and 3:00. 6. Burt's defect obliterated with trans-mesocolon INDICATIONS: Ana Alanis is a 32-year-old female who comes with lifelong morbid obesity. She is looking into the gastric bypass. As a result of her morbid obesity, she has developed hypertensive heart disease, osteoarthritis, including obstructive sleep apnea. She has completed assessment and treatment for her sleep apnea. She presents for options for surgical weight loss. At height of 5 feet 10.5 inches, her ideal body weight is 173 pounds. Highest weight of 354 pounds, BMI 50.2. She comes in 310 pounds from 316 pounds, in 1 year. She has lost 6 pounds in 1 year. Her body mass index is 44.8. She is 137 pounds overweight. A second-generation bariatric consent form was described in detail including the possibility of protein malnutrition, leaks, gastrojejunal stricture, venous thrombosis, need for further surgery for which she demonstrated understanding. Benefits and risks of the procedure were described at length. Informed consent was obtained. DESCRIPTION: The patient was brought into the operating room theater. She was placed supine. She had received heparin subcutaneously for DVT prophylaxis. Additionally Peridex oral solution as an oral decontaminant was placed per anesthesia. After general induction, the abdomen was prepped and draped in standard sterile fashion. Ioban draping was placed along the abdomen. Everett catheter was avoided. A robotic da Zen Xi system was prepped and primed. Incisions were proposed at 15 cm from the xiphoid. Proposed port sites were marked with indelible marker along the anterior axillary line bilaterally, mid clavicular line bilaterally with each port marked 10 cm from each other. The robotic stapler port was marked for the right midclavicular line including along the left midclavicular line. A 5 mm 0 degrees laparoscopic trocar entry was performed along the left upper quadrant. The abdomen was insufflated to 15 mmHg pressure, which she tolerated well. Diagnostic laparoscopy demonstrated no injury to bowel, viscera, or mesentery. The liver demonstrated hepatomegaly with fatty liver disease. Additionally present splenomegaly was identified. An 8 mm camera port was placed left lateral to the umbilicus at the epigastrium, 15 cm distal to the xiphoid. Next, 12-mm robot stapler port was placed along the right mid abdomen. An 12 mm port was exchanged along the left upper quadrant. An 8 mm port was placed on the left lateral abdominal wall under direct visualization Please note that the ports were placed 18 to 20 cm away from the target anatomy of the stomach. Care was taken to check that each robotic arm was safely away from collision with the bed or the patient. At the epigastrium, a medium sized Elyse liver retractor was placed under direct visualization with the Iron Bulk Mail Clerk placed under the right shoulder of the patient. The patient was repositioned in reverse Trendelenburg position at 21-degrees after lowering the bed. The robot was docked over the patient. Using grasper for arm 3, a grasper for arm 1, including vessel sealer for arm 4, the robotic system was docked and primed as described. Instruments were interchanged by the assistant teacher primary including endoscissors, the needle industrial truck driver, and stapler. I had sat at the console. Next, the transverse mesocolon was reflected into the upper abdomen for the jejunojejunostomy portion of the case; however adhesions of the pelvis were identified prohibiting progression of her gastric bypass. The robot was undocked and placed for pelvic view. Transverse mesocolon was adherent to the pelvis including the lower abdomen without abdominal wall hernia identified. The adhesion was resected using vessel sealer. The small bowel was investigated from the terminal ileum proximally. Adhesions are found at the terminal ileum from prior open appendectomy. Internal hernia from adhesions were also identified and taken down using vessel sealer. The small bowel was inspected from the terminal ileum proximally to the ligament of Treitz without any further adhesions identified. With this finding, we were able to progress her gastric bypass. The robot was again undocked. The robot was positioned for upper abdomen for gastric bypass. The ligament of Treitz was identified and measured 60 cm antegrade and marked using 3-0 Silk. The jejunum was divided at the 60 cm point using 60-mm white loads above the suture measurement. The biliopancreatic limb was held in place. The Zina limb was measured 100 cm in an antegrade fashion to avoid tension along the proposed gastrojejunal anastomosis. At 100 cm along the anti-mesenteric border of the Zina limb, a jejunojejunostomy was proposed whereby enterotomies were created along the biliopancreatic limb including the Zina limb using a Bovie cautery. A stay suture of 3-0 Slik was placed to align and create the anastomosis. The enterotomies along the anti- mesenteric borders were created followed by unidirectional fire from the patient's right side using 60 mm white loads Connectbeam technology robotic stapler. The jejunojejunostomy was found to be hemostatic. The enterotomy was closed after horizontal mattress stitch of 3-0 silk used to elevate the enterotomy followed by closure with the robotic stapler blue load. The jejunal limb was t emporarily tacked along the left upper quadrant. Attention was now brought to the creation of the gastrojejunostomy. The spleen was moderately enlarged consistent with splenomegaly. Careful dissection was performed to avoid any injury to the spleen. Along the lesser curvature of the stomach, dissection was made along the retrogastric space to allow first firing of the robotic staple. Total of two shorty of green loads and blue loads of 60 mm staplers were used to divide the stomach to create the gastric pouch. The patient was then prepared for placement of a Orvil. A 25-mm Orvil was s elected for placement by the nurse tank car reconditioner. The Orvil tubing was placed anterior to the staple line of the gastric pouch and brought out through the left inferior lateral port. I re-scrubbed into the case. The robotic arms were temporarily undocked. The Orvil was then carefully and successfully navigated with the help of the nurse tank car reconditioner into the gastric pouch. The sutures were identified and divided. The tubing was from the 25 mm anvil. As the Orvil had been placed, the jejunal limb was brought proximally into the upper abdomen. No torsion was found upon the Zina limb. No tension was identified as the limb was brought along the upper abdomen. The jejunal limb was previously opened using hook cautery. The 25-mm EEA stapler was brought through the left anterior lateral port site from the left side. The EEA stapler was brought through the open jejunal limb and its needle was deployed at the antimesenteric border where the anvil were mated for approximate ly 1 minute upon firing. The stapler was removed after irrigating the shaft of the instrument with warm normal saline. Donuts were found to be intact and on both sides. The da Zen Xi robot arms were then re-docked. I sat at the console. The open jejunal limb defect was closed using 60 mm blue loads after releasing any tension from the blind jejunal limb. No redundancy was present for jejunal limb. The transverse mesocolon was divided for the zina limb. Reinforcement sutures were placed along the gastrojejunal anastomosis and placed along the 9:00, 12:00 and 3:00 o'clock position using 3-0 Vicryl. The jejunojejunostomy mesenteric defect was closed using 2-0 V LOC, green. The Burt's defect was obliterated by her transverse mesocolon which was not divided during her procedure. I then went to the head of the bed to perform the esophagogastrojejunoscopy and a leak test. An Olympus gastroscope was passed alongthe posterior oropharynx which was unremarkable for any injury to the vocal cords. The scope was passed down to the proximal portion of the pouch, whereby no active bleeding was encountered. Excellent visualization of the gastrojejunostomy anastomosis, including the Zina limb was encountered with endoscopic image obtained. The anastomosis was found to be patent without active bleeding. Residual blood was suctioned from the gastric pouch. The gastrointestinal tract was desufflated. No evidence of intraoperative leak was encountered as the gastric pouch and anastomosis were submerged under normal saline solution. The robot was then undocked. I then went back to the bedside of the patient, whereby with coordinated effort of the assistant teacher primary, irrigation was aspirated from the upper abdominal cavity. Tisseel was placed circumferentially over the anastomosis of the gastrojejunostomy. The fascial defect of the EEA stapler was closed using Jonathan Zarate and 0 Vicryl. All instruments and pneumoperitoneum were evacuated from the abdominal cavity. The port correlating with the EEA stapler device was cleansed with normal saline solution and hydrogen peroxide. The rest of incisions were reapproximated using 4-0 Monocryl in an interrupted subcuticular fashion. Local anesthetic was infiltrated along the skin for postop analgesia. Liquid glue was applied to the skin. OptiFoam dressing was placed along the EEA stapler site. At the end of the procedure, needle, sponge and instrument count had been verified correct by the certified surgical technician. The patient had tolerated the procedure well and was extubated and taken to the postanesthesia unit in stable condition.
[2022-11-21] MEDS: ALBUTEROL NEBULIZED 2.5 MG/3 ML INHALATION SCH ×2 (16:10→19:51)
[2022-11-21] MEDS: SIMETHICONE 80 MG CHEWABLE PO SCH (16:56)
[2022-11-21] MEDS: ACETAMINOPHEN IV (For NPO) 1,000 MG in EMPTY BAG 1 BAG IVPB SCH (16:56)
[2022-11-21] MEDS: METOCLOPRAMIDE 5 MG/ML 2 ML VIAL IVP SCH (16:58)
[2022-11-21] MEDS: ONDANSETRON 4 MG/2 ML VIAL IVP SCH (16:58)
[2022-11-21] MEDS: 0.9% NACL WITH KCL 20 MEQ/L 1,000 ML IV SCH (17:26)
[2022-11-21] MEDS: HYDROmorphone 1 MG/ML 1 ML SYRINGE IVP PRN ×2 (17:27→20:41)
[2022-11-21] MEDS ORDERED: ceFAZolin 3 GM in SODIUM CHLORIDE 0.9% 100 ML IVPB SCH (18:00)
[2022-11-21] MEDS: PANTOPRAZOLE 40 MG/10 ML VIAL IV SCH (22:37)
[2022-11-22] MEDS: ONDANSETRON 4 MG/2 ML VIAL IVP SCH ×5 (00:14→20:33)
[2022-11-22] MEDS: METOCLOPRAMIDE 5 MG/ML 2 ML VIAL IVP SCH ×6 (00:14→20:33)
[2022-11-22] MEDS: SIMETHICONE 80 MG CHEWABLE PO SCH ×4 (00:15→15:13)
[2022-11-22] MEDS: ACETAMINOPHEN IV (For NPO) 1,000 MG in EMPTY BAG 1 BAG IVPB SCH ×3 (00:21→10:39)
[2022-11-22] MEDS: HYDROmorphone 1 MG/ML 1 ML SYRINGE IVP PRN ×8 (01:57→23:03)
[2022-11-22] MEDS: 0.9% NACL WITH KCL 20 MEQ/L 1,000 ML IV SCH ×4 (01:57→21:35)
[2022-11-22] MEDS: ALBUTEROL NEBULIZED 2.5 MG/3 ML INHALATION SCH ×4 (07:32→21:03)
[2022-11-22] MEDS: PANTOPRAZOLE 40 MG/10 ML VIAL IV SCH ×2 (08:07→20:33)
[2022-11-22 08:50] LABS: Basophils # (A) 0.02 X 10*3/uL (0.00-0.10); Basophils % (A) 0.1 %; Eosinophils # (A) 0.01 X 10*3/uL (0.04-0.35); Eosinophils % (A) 0.1 %; HCT 38.2 % (37.2-46.3); Lymphocytes # (A) 1.28 X 10*3/uL (0.90-5.00); Lymphocytes % (A) 8.7 %; MCH 25.5 pg (27.0-32.0); MCHC 31.4 d/dL (32.0-37.0); MCV 81.3 FL (80.0-97.0); Mean Platelet Volume 10.8 FL (9.5-12.2); Monocytes # (A) 0.95 X 10*3/uL (0.20-1.00); Monocytes % (A) 6.5 %; NRBC Per 100 WBC 0 X 10*3/uL (0.00-0.01); Neutrophils # (A) 12.32 X 10*3/uL (1.80-7.70); Neutrophils % (A) 84.3 %; Platelet Count 289 X 10*3/uL (140-440); RDW 14.3 % (11.5-14.5); WBC 14.63 X 10*3/uL (4.50-10.00)
[2022-11-22 09:36] LABS: Blood Urea Nitrogen 4.8 mg/dL (9.0-27.0); Calcium 8.7 mg/dL (8.7-10.3); Carbon Dioxide 23.2 mmol/L (21.6-31.8); Chloride 102 mmol/L (96-109); Magnesium 2.1 mg/dL (1.5-2.4); Phosphorus 3.2 mg/dL (2.4-5.1); Potassium 4.2 mmol/L (3.5-5.5); Sodium 139 mmol/L (135-145)
[2022-11-22 11:20] VITALS: BMI 43.2
--- NOTE | 2022-11-22 12:21 | FL ---
SINGLE CONTRAST UPPER GI EXAMINATION: CLINICAL HISTORY: 32-year-old female postop bariatric surgery, Carlos-en-Y gastric bypass. TECHNIQUE: Single contrast exam performed with 50 ml Isovue-370 contrast. TECHNIQUE: A single contrast UGI study is performed. A total of 38 seconds of fluoroscopic time was utilized during procedure and 15 images obtained. Total dose area product (DAP) in uGy*m?, mGy*cm? ( or similar): 397.8. FINDINGS: The patient swallowed oral contrast without difficulty or delay. Esophageal peristalsis and motility are within normal limits. There is prompt passage of contrast from the esophagus into the stomach. Subsequent prompt passage of contrast from the stomach across the gastrojejunostomy into proximal sma ll bowel loops. There is no evidence of contrast extravasation to suggest leak. No obstruction. No po st surgical free air seen below the hemidiaphragms. IMPRESSION: No evidence of leak or obstruction status post Carlos-en-Y gastric bypass..
--- NOTE | 2022-11-22 12:37 | P.PN ---
Subjective Progress Note Date: 11/22/22 CHIEF COMPLAINT: Morbid obesity HISTORY OF PRESENT ILLNESS: Patient is postop day #1 status post robotic Carlos-en-Y gastric bypass and lysis of adhesions. Patient does complain of abdominal pain. She did require IV Dilaudid this morning. She did have nausea last night and it is improved this morning. Denies any flatus. She has belching. She does complain of not completely emptying bladder when urinating. Afebrile. WBC is 14.63 hgb 12 platelets 289 sodium is 139 potassium 4.2 creatinine 0.8 magnesium 2.1 Upper GI results demonstrate no evidence of leak or obstruction status post Carlos-en-Y gastric bypass. PHYSICAL EXAM: VITAL SIGNS: Reviewed GENERAL: Well-developed in no acute distress. HEENT: No sclera icterus. Extraocular movements grossly intact. Moist buccal mucosa. Head is atraumatic, normocephalic. Hears conversational speech. No nasal drainage. NECK: Supple without lymphadenopathy. CHEST: Non-labored respirations and equal bilateral excursions. CARDIOVASCULAR: Palpable 2+ radial pulses. ABDOMEN: Soft. Nondistended. MUSCULOSKELETAL: No clubbing or cyanosis. NEUROLOGIC: No focal or lateralizing signs. Cranial nerves II through XII grossly intact. PSYCH: Appropriate affect. Alert and oriented to person, place and time. SKIN: Well perfused. Good skin turgor. ASSESSMENT: 1. Morbid obesity due to excess calories 2. Body mass index of 50.2 3. Gastroesophageal reflux disease 4. Hypertensive heart disease 5. Supraventricular tachycardia 6. Anemia 7. History of pre-eclampsia 8. Anxiety 9. Bipolar disorder 10. Osteoarthritis bilateral knees 11. Obstructive sleep apnea 12. Osteoarthritis of the lower back 13. Osteoarthritis of the bilateral knee 14. Dysphagia 15. Iron deficiency 16. Vitamin D deficiency 17. Zinc deficiency 18. Pelvic adhesions, lower midline 19. Internal hernia, right lower quadrant 20. Fatty liver disease of hepatomegaly 21. Splenomegaly 22. Personal history of mononucleosis 23. Leukocytosis likely reactive from steroids PLAN: -Start bariatric clear liquid diet -Continue IV fluids -Check postvoid residual to monitor for urinary retention -Continue pain management -Continue antiemetics -Encourage patient to ambulate -Encourage patient to use incentive spirometer -GI prophylaxis Protonix and DVT prophylaxis SCDs Physician Call Centre Supervisor note has been reviewed by physician. Signing provider agrees with the documented findings, assessment, and plan of care. Objective - Vital Signs Vital signs: Vital Signs Temp 97.7 F 11/22/22 07:06 Pulse 92 11/22/22 08:00 Resp 16 11/22/22 08:00 BP 169/79 11/22/22 07:06 Pulse Ox 96 11/22/22 07:40 FiO2 21 11/22/22 07:40 Intake & Output 11/21/22 11/22/22 11/22/22 18:59 06:59 18:59 Intake Total 2700 400 Output Total 5 Balance 2695 400 Weight 140.8 kg Intake: IV 2700 Oral 400 Output: Estimated Blood Loss 5 Other: Voiding Method Toilet Toilet # Voids 2 1 1 - Labs CBC & Chem 7: 11/22/22 04:12 11/22/22 04:12 Labs: Abnormal Lab Results - Last 24 Hours (Table) 11/22/22 11/22/22 Range/Units 04:12 04:12 WBC 14.63 H (4.50-10.00) X 10*3/uL MCH 25.5 L (27.0-32.0) pg MCHC 31.4 L (32.0-37.0) d/dL Neutrophils # 12.32 H (1.80-7.70) X 10*3/uL Eosinophils # 0.01 L (0.04-0.35) X 10*3/uL Anion Gap 13.80 H (4.00-12.00) mmol/L BUN 4.8 L (9.0-27.0) mg/dL
[2022-11-22] MEDS: LACTATED RINGERS 1,000 ML IV SCH (16:09)
[2022-11-23] MEDS: SIMETHICONE 80 MG CHEWABLE PO SCH ×4 (00:01→18:55)
[2022-11-23] MEDS: HYDROmorphone 1 MG/ML 1 ML SYRINGE IVP PRN ×2 (02:44→06:32)
[2022-11-23] MEDS: 0.9% NACL WITH KCL 20 MEQ/L 1,000 ML IV SCH (04:26)
[2022-11-23] MEDS: LACTATED RINGERS 1,000 ML IV SCH (06:12)
[2022-11-23] MEDS: ACETAMINOPHEN IV (For NPO) 1,000 MG in EMPTY BAG 1 BAG IVPB SCH ×4 (06:20→18:54)
[2022-11-23] MEDS: ONDANSETRON 4 MG/2 ML VIAL IVP SCH ×4 (06:20→18:21)
[2022-11-23] MEDS: METOCLOPRAMIDE 5 MG/ML 2 ML VIAL IVP SCH ×4 (06:20→18:21)
[2022-11-23] MEDS ORDERED: bisacodyL 5 MG TABLET.DR PO PRN (08:00)
[2022-11-23] MEDS: PANTOPRAZOLE 40 MG/10 ML VIAL IV SCH (08:30)
[2022-11-23] MEDS: ceFAZolin 3 GM in SODIUM CHLORIDE 0.9% 100 ML IVPB SCH ×2 (08:30→18:21)
[2022-11-23] MEDS ORDERED: HEPARIN SODIUM,PORCINE/PF 5,000 UNIT/0.5 ML SYRINGE SQ SCH (09:00)
[2022-11-23] MEDS: ALBUTEROL NEBULIZED 2.5 MG/3 ML INHALATION SCH ×3 (09:42→16:18)
--- NOTE | 2022-11-23 14:29 | P.DS ---
Providers Date of admission: 11/21/22 08:13 Expected date of discharge: 11/23/22 Attending physician: Janet Jane Primary care physician: Tre Herring Hospital Course: Discharge diagnosis 1. Morbid obesity due to excess calories 2. Body mass index of 50.2 3. Gastroesophageal reflux disease 4. Hypertensive heart disease 5. Supraventricular tachycardia 6. Anemia 7. History of pre-eclampsia 8. Anxiety 9. Bipolar disorder 10. Osteoarthritis bilateral knees 11. Obstructive sleep apnea 12. Osteoarthritis of the lower back 13. Osteoarthritis of the bilateral knee 14. Dysphagia 15. Iron deficiency 16. Vitamin D deficiency 17. Zinc deficiency 18. Pelvic adhesions, lower midline 19. Internal hernia, right lower quadrant 20. Fatty liver disease of hepatomegaly 21. Splenomegaly 22. Personal history of mononucleosis 23. Leukocytosis likely reactive from steroids Hospital course This is a 32-year-old female with morbid obesity she is status post Robotic- assisted laparoscopic Carlos-en-Y gastric bypass. Patient's upper GI shows no evidence of leak or obstruction. She is tolerating diet. Her pain is controlled. She has been up and ambulating. She is afebrile. She is stable for discharge. Physician Forestry Consultant note has been reviewed by physician. Signing provider agrees with the documented findings, assessment, and plan of care. Patient Condition at Discharge: Stable Plan - Discharge Summary Discharge Rx Participant: Yes New Discharge Prescriptions: New Simethicone 40 mg/0.6 ml Drops [Mylicon Drops] 40 mg PO PCHS PRN #30 ml PRN Reason: Gas Omeprazole [PriLOSEC] 40 mg PO DAILY #30 cap Acetaminophen Tab [Tylenol] 1,000 mg PO Q6HR PRN #30 tablet PRN Reason: Pain bisacodyL [Dulcolax] 5 mg PO DAILY PRN #10 tab PRN Reason: Constipation Ondansetron Odt [Zofran Odt] 4 mg PO Q8HR PRN #9 tab PRN Reason: Nausea Continue clonazePAM [KlonoPIN] 0.5 mg PO DIRECTED PRN PRN Reason: Anxiety lamoTRIgine [LaMICtal] 250 mg PO BID Discontinued Pantoprazole [Protonix] 40 mg PO DAILY Discharge Medication List lamoTRIgine [LaMICtal] 250 mg PO BID 04/14/21 [History] clonazePAM [KlonoPIN] 0.5 mg PO DIRECTED PRN 09/28/22 [History] Acetaminophen Tab [Tylenol] 1,000 mg PO Q6HR PRN #30 tablet 11/23/22 [Rx] Omeprazole [PriLOSEC] 40 mg PO DAILY #30 cap 11/23/22 [Rx] Ondansetron Odt [Zofran Odt] 4 mg PO Q8HR PRN #9 tab 11/23/22 [Rx] Simethicone 40 mg/0.6 ml Drops [Mylicon Drops] 40 mg PO PCHS PRN #30 ml 11/23/22 [Rx] bisacodyL [Dulcolax] 5 mg PO DAILY PRN #10 tab 11/23/22 [Rx] Follow up [facility]ment(s[facility] [place] [facility] [place] [facility] Activity/Diet/Wound Care/Special Instructions: Liquid diet only for 2 weeks No lifting over 4 pounds in 4 weeks May Shower. No soaking in bath tubs for 2 weeks Please notify your surgeon if you develop nausea and vomiting including new onset of abdominal pain. Continue to use incentive spirometry to prevent pneumonias. Please continue to ambulate at home to prevent blood clots in legs. Follow-up at the bariatric center. May shower. Dressings to be discontinued by surgeon in the office. Drink 64 oz of fluid daily. Start protein shakes on . Notify bariatric center for temp over 101.0, increased pain, drainage from incisions. No straws or carbonated beverages. Liquid diet only. Sugar content should be less than 6 g to avoid dumping syndrome. Take MOM for constipation. CRUSH, OPEN, OR CUT TABLETS LARGER THAN A SIZE OF A TIC TAC Discharge Disposition: HOME SELF-CARE
[2022-11-23 14:31] LABS: Basophils # (A) 0.04 X 10*3/uL (0.00-0.10); Basophils % (A) 0.4 %; Eosinophils # (A) 0.12 X 10*3/uL (0.04-0.35); Eosinophils % (A) 1.2 %; HCT 36.7 % (37.2-46.3); HGB 11.2 d/dL (12.0-15.0); Lymphocytes # (A) 1.38 X 10*3/uL (0.90-5.00); Lymphocytes % (A) 14.2 %; MCH 25.9 pg (27.0-32.0); MCHC 30.5 d/dL (32.0-37.0); MCV 84.8 FL (80.0-97.0); Mean Platelet Volume 11.3 FL (9.5-12.2); Monocytes # (A) 0.71 X 10*3/uL (0.20-1.00); Monocytes % (A) 7.3 %; NRBC Per 100 WBC 0 X 10*3/uL (0.00-0.01); Neutrophils # (A) 7.42 X 10*3/uL (1.80-7.70); Neutrophils % (A) 76.6 %; Platelet Count 264 X 10*3/uL (140-440); RBC 4.33 X 10*6/uL (4.10-5.20); RDW 14.6 % (11.5-14.5)
[2022-11-23 14:47] LABS: BUN/Creat Ratio 6.57 Ratio (12.00-20.00); Blood Urea Nitrogen 4.6 mg/dL (9.0-27.0); Calcium 8.5 mg/dL (8.7-10.3); Carbon Dioxide 21.5 mmol/L (21.6-31.8); Chloride 104 mmol/L (96-109); Glucose 77 mg/dL (70-110); Potassium 4.3 mmol/L (3.5-5.5); Sodium 139 mmol/L (135-145)
[2022-11-23 15:40] VITALS: BP 133/78; PULSE 80; RESP 18; TEMP 97.5
== END 2022-11-23 19:37 | disposition home or self-care (01) | DRG 403 ==
LOC: 2ORMAIN 08:13 → 4SSUR 14:12
PROVIDERS: ADMIT Surgery Plastic and Reconstructive Surgery; ATTEND Surgery Plastic and Reconstructive Surgery
PROC: 0D164ZA Bypass Stomach to Jejunum, Percutaneous Endoscopic Approach (ICD-10-PCS; principal; 2022-11-21 10:15)
PROC: 0DN84ZZ Release Small Intestine, Percutaneous Endoscopic Approach (ICD-10-PCS; principal; 2022-11-21 10:15)
PROC: 8E0W4CZ Robotic Assisted Procedure of Trunk Region, Percutaneous Endoscopic Approach (ICD-10-PCS; principal; 2022-11-21 10:15)
PROC: 0DJ08ZZ Inspection of Upper Intestinal Tract, Via Natural or Artificial Opening Endoscopic (ICD-10-PCS; principal; 2022-11-21 10:15)
DX: E66.01 Morbid (severe) obesity due to excess calories (principal); Z68.41 Body mass index [BMI] 40.0-44.9, adult; I47.1 Supraventricular tachycardia; K76.0 Fatty (change of) liver, not elsewhere classified; I11.9 Hypertensive heart disease without heart failure; E55.9 Vitamin D deficiency, unspecified; F31.9 Bipolar disorder, unspecified; K46.9 Unspecified abdominal hernia without obstruction or gangrene; N73.6 Female pelvic peritoneal adhesions (postinfective); E60 Dietary zinc deficiency; E61.1 Iron deficiency; F41.9 Anxiety disorder, unspecified; G47.33 Obstructive sleep apnea (adult) (pediatric); K21.9 Gastro-esophageal reflux disease without esophagitis; M17.0 Bilateral primary osteoarthritis of knee; R13.10 Dysphagia, unspecified; D64.9 Anemia, unspecified; D72.829 Elevated white blood cell count, unspecified; R16.1 Splenomegaly, not elsewhere classified; T38.0X5A Adverse effect of glucocorticoids and synthetic analogues, initial encounter; Z79.899 Other long term (current) drug therapy; Z87.891 Personal history of nicotine dependence; Z71.3 Dietary counseling and surveillance
CPT/HCPCS: 74240; 80048; 80051; 81025; 82310; 82565; 83735; 84100; 84520; 85025; 86850; 86900; 86901; 94640; 94760

== ENCOUNTER → 2022-11-25 | Outpatient (CLI) | payer OTHER ==
--- NOTE | 2022-11-25 10:20 | P.BASOAP ---
Subjective Progress Note Date: 11/25/22 Patient reports chronic coughing spread at home including after leaving the hospital. During her assessment, no chronic coughing identified. No signs of infection. Dressing discontinued. Tachycardia resolved after sitting down. Mother is at bedside. Patient reports exposure to children was also coughing. Recommend no return to work until for 4 weeks due to complexity of her surgery. Additionally, patient procedure ventricular tachycardia with Claritin. Patient educated that she is more immunocompromise within 2 weeks of her surgery. Recommended time off from work for 4 weeks until additional assessment. Patient also notified that I will be unavailable next week with close nurse follow-up visits. Follow-up in the bariatric Center with me December 07. Also recommend IV fluid hydration due to inadequate oral intake, dehydration. Assessment/Plan Plan: Date: Initial Weight: Initial BMI: Current Weight: Current BMI: Type of Surgery: Total Volume in Band: Previous Volume: Volume Removed: Volume Added: Band Size:
--- NOTE | 2022-11-25 10:22 | P.PN ---
Progress Note - Text Progress Note Date: 11/25/22 To whom it may concern: Ana Alansi is under my surgical care. She may return to work on December 26, 2022 without restrictions. She will need complete recovery prior to return to work. Regards, Janet Jane MD
[2022-11-25 10:26] VITALS: BP 145/88; PULSE 88; RESP 13; TEMP 98.5
== END ==
LOC: BARWHC3 09:04
PROVIDERS: ATTEND Surgery Plastic and Reconstructive Surgery
DX: E66.01 Morbid (severe) obesity due to excess calories (principal); Z68.41 Body mass index [BMI] 40.0-44.9, adult
CPT/HCPCS: 99211

== ENCOUNTER → 2023-03-29 | Outpatient (CLI) | payer OTHER ==
--- NOTE | 2023-03-29 16:16 | P.BASOAP ---
Subjective Progress Note Date: 03/29/23 Patient left without being seen. Assessment/Plan Plan: Date: Initial Weight: Initial BMI: Current Weight: Current BMI: Type of Surgery: Total Volume in Band: Previous Volume: Volume Removed: Volume Added: Band Size:
== END ==
LOC: BARWHC3 14:22
PROVIDERS: ATTEND Surgery Plastic and Reconstructive Surgery
DX: Z53.9 Procedure and treatment not carried out, unspecified reason (principal)

== ENCOUNTER → 2023-07-26 | Outpatient (CLI) | payer OTHER ==
[2023-07-26 13:59] VITALS: BP 132/79; PULSE 68; RESP 16; TEMP 98.2; BMI 29.4
--- NOTE | 2023-07-26 14:55 | P.BASOAP ---
Subjective Progress Note Date: 07/26/23 She lost 130+ pounds. No abdominal pain. NO reflux. BLood pressure is medications. Wants panniculectomy. Lost 100 pounds. Has back pain and troubles with skin, has panniculitis. Has 10 pounds of skin. 6 months. Objective - Vital Signs Vital signs: Vital Signs Temp 98.2 F 07/26/23 13:27 Pulse 68 07/26/23 13:27 Resp 16 07/26/23 13:27 BP 132/79 07/26/23 13:27 Pulse Ox FiO2 Intake & Output 07/25/23 07/26/23 07/26/23 18:59 06:59 18:59 Weight 94.347 kg Assessment/Plan Plan: Date: 07/26/23 Initial Weight: 155.582 kg Initial BMI: 48.5 Current Weight: 94.347 kg Current BMI: 29.4 Type of Surgery: Total Volume in Band: Previous Volume: Volume Removed: Volume Added: Band Size:
== END | disposition home or self-care (01) ==
LOC: BARWHC3 13:04
PROVIDERS: ATTEND Surgery Plastic and Reconstructive Surgery
DX: E66.01 Morbid (severe) obesity due to excess calories (principal); Z53.9 Procedure and treatment not carried out, unspecified reason
CPT/HCPCS: 97803; G0463; 99211

== ENCOUNTER → 2024-03-06 | Outpatient (CLI) | payer OTHER ==
[2024-03-06 13:30] VITALS: BP 127/84; PULSE 86; RESP 14; TEMP 98.2; BMI 27.8
--- NOTE | 2024-03-06 14:10 | P.BASOAP ---
Subjective Progress Note Date: 03/06/24 Has epigastric pain at 8 pm 2 weeks ago and go worse. She reports pain went to the left upper quadrant pain. [facility] is her local pain. US of gallbladder. She reports pain gets better after movement. She has change in bowel habits. She is now constipated. She has gallstones. She is having troubles with pain. Stop diet. Get labs and EKG now. Needs urgent surgery. Objective - Vital Signs Vital signs: Vital Signs Temp 98.2 F 03/06/24 13:23 Pulse 86 03/06/24 13:23 Resp 14 03/06/24 13:23 BP 127/84 03/06/24 13:23 Pulse Ox FiO2 Intake & Output 03/05/24 03/06/24 03/06/24 18:59 06:59 18:59 Weight 89.358 kg Assessment/Plan Plan: Date: 03/06/24 Initial Weight: 155.582 kg Initial BMI: 48.5 Current Weight: 89.358 kg Current BMI: 27.8 Type of Surgery: Total Volume in Band: Previous Volume: Volume Removed: Volume Added: Band Size:
--- NOTE | 2024-03-08 10:03 | P.PN ---
Progress Note - Text Progress Note Date: 03/08/24 Patient notified bariatric center for severe epigastric right upper quadrant abdominal pain. Patient went to her local emergency room within the past 1 to 2 weeks and told that she had gallstones. Patient told to come to the emergency room for admission for acute cholecystitis including surgery. I personally spoke to the patient on the telephone where she is in transit to the hospital.
== END ==
LOC: BARWHC3 13:07
PROVIDERS: ATTEND Surgery Plastic and Reconstructive Surgery
DX: E66.01 Morbid (severe) obesity due to excess calories (principal); R10.11 Right upper quadrant pain; K80.20 Calculus of gallbladder without cholecystitis without obstruction; Z68.27 Body mass index [BMI] 27.0-27.9, adult
CPT/HCPCS: 99211

== ENCOUNTER → 2024-03-06 | Outpatient (CLI) | payer OTHER ==
[2024-03-06 15:48] LABS: Partial Thromboplastin Time 25.4 sec (22.0-30.0); Prothrombin Time 11.3 sec (10.0-12.5)
[2024-03-06 19:49] LABS: HCT 38.2 % (37.2-46.3); HGB 12.7 g/dL (12.0-15.0); MCH 28.7 pg (27.0-32.0); MCHC 33.2 g/dL (32.0-37.0); MCV 86.2 FL (80.0-97.0); Mean Platelet Volume 10.7 FL (9.5-12.2); NRBC Per 100 WBC 0 X 10*3/uL (0.00-0.01); Platelet Count 275 X 10*3/uL (140-440); RBC 4.43 X 10*6/uL (4.10-5.20); RDW 11.9 % (11.5-14.5); WBC 6.93 X 10*3/uL (4.50-10.00)
[2024-03-06 22:18] LABS: Prealbumin 18.2 mg/dL (18.0-42.0)
[2024-03-06 22:22] LABS: % Iron Saturation 16.46 (12.00-45.00); ALT 20 U/L (8-44); AST 17 U/L (13-35); Albumin 4.5 g/dL (3.8-4.9); Albumin/Globulin Ratio 1.96 Ratio (1.60-3.17); Alkaline Phosphatase 59 U/L (41-126); BUN/Creat Ratio 23.43 Ratio (12.00-20.00); Blood Urea Nitrogen 16.4 mg/dL (9.0-27.0); Calcium 9.5 mg/dL (8.7-10.3); Carbon Dioxide 23.2 mmol/L (21.6-31.8); Chloride 103 mmol/L (96-109); Chol/HDL Ratio 3.71 Ratio; Ferritin 29.4 ng/mL (10.0-291.0); Globulin 2.3 g/dL (1.6-3.3); Glucose 99 mg/dL (70-110); Iron 65 UG/DL (50-170); LDL Cholesterol,Calculated 101.5 mg/dL (0.0-131.0); Magnesium 2.2 mg/dL (1.5-2.4); Phosphorus 4.7 mg/dL (2.4-5.1); Potassium 5.1 mmol/L (3.5-5.5); Sodium 140 mmol/L (135-145); Total Bilirubin 0.2 mg/dL (0.3-1.2); Total Iron Binding Capacity 395 UG/DL (228-460); Total Protein 6.8 g/dL (6.2-8.2); VLDL Calculation 19.72 mg/dL (5.00-40.00)
[2024-03-07 11:51] LABS: Zinc, Serum 79 ug/dL (60-130)
[2024-03-08 05:56] LABS: Vit B1(Thiamine) 110 ug/L (38-122)
[2024-03-08 12:03] LABS: Vitamin A 38 ug/dL (38-106)
== END | disposition home or self-care (01) ==
LOC: LABWHC1 14:25
PROVIDERS: ATTEND Surgery Plastic and Reconstructive Surgery
DX: Z48.89 Encounter for other specified surgical aftercare (principal); E89.1 Postprocedural hypoinsulinemia; D50.8 Other iron deficiency anemias; D50.9 Iron deficiency anemia, unspecified; K91.2 Postsurgical malabsorption, not elsewhere classified; E44.0 Moderate protein-calorie malnutrition; E44.1 Mild protein-calorie malnutrition; E45 Retarded development following protein-calorie malnutrition; E46 Unspecified protein-calorie malnutrition; E55.9 Vitamin D deficiency, unspecified; K74.1 Hepatic sclerosis; N19 Unspecified kidney failure; T56.894A Toxic effect of other metals, undetermined, initial encounter; K50.90 Crohn's disease, unspecified, without complications
CPT/HCPCS: 36415; 80053; 80061; 82306; 82525; 82607; 82728; 82746; 83036; 83540; 83550; 83735; 83970; 84100; 84134; 84255; 84425; 84443; 84590; 84630; 85027; 85610; 85730; 93005

== ENCOUNTER 2024-03-08 11:06 | Inpatient (IN) | payer OTHER ==
[2024-03-08] MEDS ORDERED: NALOXONE 0.4 MG/ML 1 ML VIAL IV PRN ×2 (12:12→20:53)
--- NOTE | 2024-03-08 12:17 | ED ---
General Adult HPI - General Chief complaint: Abdominal Pain Stated complaint: Abd pain Time Seen by Provider: 03/08/24 11:26 Source: patient Mode of arrival: ambulatory Limitations: no limitations - History of Present Illness Initial comments: Dictation was produced using [employer] dictation software. please excuse any grammatical, word or spelling errors. Chief Complaint: 34-year-old female scented by surgeon for hospital mission for gallbladder removal History of Present Illness: Patient 34-year-old female she has been having some epigastric abdominal pain. She called her surgeon. Apparently she has been dealing with gallbladder issues. Surgeon called told patient to come to the ER to be admitted so she can have her gallbladder removed. Patient [place] any fever, chills or night sweats. The ROS documented in this emergency department record has been reviewed and confirmed by me. Those systems with pertinent positive or negative responses have been documented in the HPI. All other systems are other negative and/or noncontributory. - Related Data Home Medications Medication Instructions Recorded Confirmed lamoTRIgine [LaMICtal] 100 mg PO HS 04/14/21 03/06/24 clonazePAM [KlonoPIN] 0.5 mg PO DIRECTED PRN 09/28/22 03/06/24 Previous Rx's Medication Instructions Recorded Nystatin 100,000 Unit/gm Powd 1 applic TOPICAL BID #60 gm 07/26/23 [Mycostatin Powder] Allergies Allergy/AdvReac Type Severity Reaction Status Date / Time No Known Allergies Allergy Verified 03/06/24 13:23 Review of Systems ROS Statement: Those systems with pertinent positive or pertinent negative responses have been documented in the HPI. ROS Other: All systems not noted in ROS Statement are negative. Past Medical History Past Medical History: Blood Disorder, GERD/Reflux, Hypertension, Supraventricular Tachycardia (SVT) Additional Past Medical History / Comment(s): anemia. pre-eclamspia. History of Any Multi-Drug Resistant Organisms: None Reported Past Surgical History: Adenoidectomy, Appendectomy, Bariatric Surgery, Cardiac Ablation, Tonsillectomy Additional Past Surgical History / Comment(s): emergency D & C - 2016. appendectomy - 2004. cardiac ablation - 2019. RYGB 11/21/22 Past Anesthesia/Blood Transfusion Reactions: Previous Problems w/ Anesthesia Additional Past Anesthesia/Blood Transfusion Reaction / Comment(s): emotional/angry waking up from anesthesia Past Psychological History: Anxiety, Bipolar, Panic Disorder Smoking Status: Former smoker Past Alcohol Use History: Occasional Past Drug Use History: Marijuana - Past Family History Mother Family Medical History: Hypertension, Myocardial Infarction ([place]) General Exam - General Exam Comments Initial Comments: PHYSICAL EXAM: General Impression: Alert and oriented x3, not in acute distress HEENT: Normocephalic atraumatic, extra-ocular movements intact, pupils equal and reactive to light bilaterally, mucous membranes moist. Cardiovascular: Heart regular rate and rhythm Chest: Able to complete full sentences, no retractions, no tachypnea Abdomen: abdomen soft, non-tender, non-distended, no organomegaly Musculoskeletal: Pulses present and equal in all extremities, no peripheral edema Motor: no focal deficits noted Neurological: CN II-XII grossly intact, no focal motor or sensory deficits noted Skin: Intact with no visualized rashes Psych: Normal affect and mood Limitations: no limitations Course Vital Signs 03/08/24 11:08 Temperature 98.0 F Pulse Rate 77 Respiratory 18 Rate Blood Pressure 104/71 O2 Sat by Pulse 100 Oximetry Medical Decision Making - Medical Decision Making Was pt. sent in by a medical professional or institution (, PA, QUANTITATIVE RESEARCH ANALYST, urgent care, hospital, or halfway...) When possible be specific @ -No Did you speak to anyone other than the patient for history (EMS, parent, family, police, friend...)? What history was obtained from this source @ -No Did you review nursing and triage notes (agree or disagree)? Why? @ -I reviewed and agree with nursing and triage notes Were old charts reviewed (outside hosp., previous admission, EMS record, old EKG, old radiological studies, urgent care reports/EKG's, halfway records)? Report findings @ -No old charts were reviewed Differential Diagnosis (chest pain, altered mental status, abdominal pain women, abdominal pain men, vaginal bleeding, musculoskeletal, weakness, fever, dyspnea, syncope, headache, dizziness, GI bleed, back pain, seizure, CVA, palpatations, mental health)? @ -Differential Abdominal Pain Women: Appendicitis, Cholecystitis, diverticulosis, ischemic bowel, pancreatitis, hepatitis, UTI, gastroenteritis, AAA, incarcerated hernia, bowel obstruction, constipation, inflammatory bowel, hepatitis, peptic ulcer disease, splenic infarction, perforated viscus, vulvitis, ovarian torsion, PID, kidney stone, placenta abruption, this is not meant to be an all-inclusive list EKG interpreted by me (3pts min.). @ -None done X-rays interpreted by me (1pt min.). @ -None done CT interpreted by me (1pt min.). @ -None done U/S interpreted by me (1pt. min.). @ -None done What testing was considered but not performed or refused? (CT, X-rays, U/S, labs)? Why? @ -None What meds were considered but not given or refused? Why? @ -None Was smoking cessation discussed for >3mins.? @ -No Were there social determinants of health that impacted care today? How? (Homelessness, low income, unemployed, alcoholism, drug addiction, transportation, low edu. Level, literacy, decrease access to med. care, prison, rehab)? @ -No Was there de-escalation of care discussed even if they declined (Discuss DNR or withdrawal of care, Hospice)? DNR status @ -No What co-morbidities impacted this encounter? (DM, HTN, Smoking, COPD, CAD, Cancer, CVA, ARF, Chemo, Hep., AIDS, mental health diagnosis, sleep apnea, morbid obesity)? @ -None Was patient admitted / discharged? Hospital course, mention meds given and route, prescriptions, significant lab abnormalities, going to OR and other pertinent info. @ -34-year-old female told to come to the ER to be checked in so she can get a cholecystectomy. Vital signs stable. Patient well-appearing upon arrival. Physical examination reveals well-appearing female in no acute distress with some mild epigastric abdominal pain. Did you discuss the management of the patient with other professionals (professionals i.e. , PA, QUANTITATIVE RESEARCH ANALYST, lab, RT, psych nurse, social worker aide, dry cell assembly supervisor, teacher, forest fire management officer, geriatric case manager)? Give summary @ -No Was critical care preformed (if so, how long)? @ -No Undiagnosed new problem with uncertain prognosis? @ -No Drug Therapy requiring intensive monitoring for toxicity (Heparin, Nitro, Insulin, Cardizem)? @ -No Were any procedures done? @ -No Diagnosis/symptom? Acute, or Chronic, or Acute on Chronic? Uncomplicated (without systemic symptoms) or Complicated (systemic symptoms)? @ -Cholecystectomy Side effects of treatment? @ -No Exacerbation, Progression, or Severe Exacerbation? @ -No Poses a threat to life or bodily function? How? (Chest pain, [place], [place], pneumonia, PE, COPD, DKA, ARF, appy, cholecystitis, CVA, Diverticulitis, Homicidal, Suicidal, threat to staff... and all critical care pts) @ -No Disposition Clinical Impression: Cholecystectomy planned Disposition: [facility] Condition: Fair Referrals: Fabian Ling MD [Primary Care Provider] - 1-2 days Decision Time: 12:17
[2024-03-08] MEDS: SODIUM CHLORIDE 0.9% 1,000 ML IV SCH (12:42)
[2024-03-08 13:45] LABS: ALT 16 U/L (4-34); AST 19 U/L (14-36); African American GFR (CKD) >90 (>60 ml/min/1.73 sqM); Albumin 3.9 g/dL (3.5-5.0); Albumin/Globulin Ratio 1.7; Alkaline Phosphatase 50 U/L (38-126); Anion Gap 3 mmol/L; Blood Urea Nitrogen 14 mg/dL (7-17); Calcium 8.8 mg/dL (8.4-10.2); Carbon Dioxide 28 mmol/L (22-30); Chloride 107 mmol/L (98-107); Globulin 2.3 g/dL; Glucose 83 mg/dL (74-99); Non-African American GFR(CKD) >90 (>60 ml/min/1.73 sqM); Potassium 4.3 mmol/L (3.5-5.1); Sodium 138 mmol/L (137-145); Total Bilirubin 0.5 mg/dL (0.2-1.3); Total Protein 6.2 g/dL (6.3-8.2)
[2024-03-08] MEDS: ONDANSETRON 4 MG/2 ML VIAL IVP PRN (15:05)
[2024-03-08] MEDS: MORPHINE SULFATE 4 MG/ML SYRINGE IV PRN (15:30)
--- NOTE | 2024-03-08 17:21 | P.GSHP ---
History of Present Illness H&P Date: 03/08/24 CHIEF COMPLAINT: Cholecystitis HISTORY OF PRESENT ILLNESS: The patient is a 34-year-old female with pre- existing history of gastric bypass performed over a year and a half ago. She successfully lost and maintained over 170 pound weight loss. Patient has had intractable epigastric and right upper quadrant abdominal pain for over 2 weeks with prompted her to go to the emergency room at least twice. Patient was found to have gallstones at her local ER. In addition patient reports intractable pulling sensation of the left upper quadrant for adhesions. Patient is admitted due to acute cholecystitis and intractable abdominal pain. PAST MEDICAL HISTORY: Please see list PAST SURGICAL HISTORY: Please see list MEDICATIONS: Please see list ALLERGIES: Please see list SOCIAL HISTORY: Please see list FAMILY HISTORY: Please see list REVIEW OF ORGAN SYSTEMS: CONSTITUTIONAL: No reports of fevers or chills. HEENT: Denies any troubles with the vision or hearing. ENDOCRINE: No reports of hypothyroidism. No diabetes. RESPIRATORY: No recent pneumonias. CARDIOVASCULAR: Denies chest pain or palpitations GI: No blood in stools or constipation. She had gastric bypass. MUSCULOSKELETAL: Has occasional joint pain including back pain. NEURO: No seizure disorders or headaches. No recent stroke. PSYCH: No suicidal ideation. GENITOURINARY: No active blood in urine. No urinary hesitancy. HEMATOLOGIC: No personal or family history of DVTs or pulmonary emboli. SKIN: No skin cancer. PHYSICAL EXAM: VITAL SIGNS: Afebrile vital signs stable GENERAL: Well-developed pleasant in no acute distress. HEENT: No scleral icterus. Extraocular movements grossly intact. Moist buccal mucosa. NECK: Supple without lymphadenopathy. CHEST: Unlabored respirations. Equal bilateral excursions. CARDIOVASCULAR: Regular rate regular rhythm rhythm. Distal 2+ pulses. ABDOMEN: Soft, nondistended. Tender along the epigastrium and right upper quadrant. MUSCULOSKELETAL: No clubbing, cyanosis, or edema. NEURO: Cranial nerves II to XII within normal limits. No focal or lateralizing signs. PSYCH: Alert and oriented to person, place and time. SKIN: Well-perfused good skin turgor. ASSESSMENT: 1. Epigastric and right upper quadrant abdominal pain intractable 2. Acute on chronic cholecystitis due to gallstones. PLAN: 1. Will need a robotic cholecystectomy possible open. Benefits and risks were described. 2. Heparin for DVT prophylaxis 5000 units. 3. Antibiotic prophylaxis. 4. CBC and CMP on day of procedure 5. Non-narcotic pre and post op pain management reviewed. 6. Indocyanine green for biliary imaging. 7. Admission for observation for intractable abdominal pain Past Medical History Past Medical History: Blood Disorder, GERD/Reflux, Hypertension, Supraventricular Tachycardia (SVT) Additional Past Medical History / Comment(s): anemia. pre-eclamspia. History of Any Multi-Drug Resistant Organisms: None Reported Past Surgical History: Adenoidectomy, Appendectomy, Bariatric Surgery, Cardiac Ablation, Tonsillectomy Additional Past Surgical History / Comment(s): emergency D & C - 2016. appendectomy - 2004. cardiac ablation - 2019. RYGB 11/21/22 Past Anesthesia/Blood Transfusion Reactions: Previous Problems w/ Anesthesia Additional Past Anesthesia/Blood Transfusion Reaction / Comment(s): emotional/angry waking up from anesthesia Past Psychological History: Anxiety, Bipolar, Panic Disorder Additional Psychological History / Comment(s): bipolar 1. Smoking Status: Former smoker Past Alcohol Use History: Occasional Past Drug Use History: Marijuana Additional Drug Use History / Comment(s): occasional marijuana - "couple times a month". - Past Family History Mother Family Medical History: Hypertension, Myocardial Infarction ([place]) Medications and Allergies Home Medications Medication Instructions Recorded Confirmed Type clonazePAM [KlonoPIN] 0.5 mg PO DAILY PRN 09/28/22 03/08/24 History lamoTRIgine [LaMICtal] 100 mg PO HS 03/08/24 03/08/24 History Allergies Allergy/AdvReac Type Severity Reaction Status Date / Time No Known Allergies Allergy Verified 03/08/24 12:39 Surgical - Exam Vital Signs Temp Pulse Resp BP Pulse Ox 98.0 F 77 18 104/71 100 03/08/24 11:08 03/08/24 11:08 03/08/24 11:08 03/08/24 11:08 03/08/24 11:08 Results - Labs 03/08/24 13:14 Abnormal Lab Results - Last 24 Hours (Table) 03/08/24 Range/Units 13:14 Total Protein 6.2 L (6.3-8.2) g/dL Diabetes panel 03/08/24 Range/Units 13:14 Sodium 138 (137-145) mmol/L Potassium 4.3 (3.5-5.1) mmol/L Chloride 107 (98-107) mmol/L Carbon Dioxide 28 (22-30) mmol/L BUN 14 (7-17) mg/dL Creatinine 0.67 (0.52-1.04) mg/dL Glucose 83 (74-99) mg/dL Calcium 8.8 (8.4-10.2) mg/dL AST 19 (14-36) U/L ALT 16 (4-34) U/L Alkaline Phosphatase 50 (38-126) U/L Total Protein 6.2 L (6.3-8.2) g/dL Albumin 3.9 (3.5-5.0) g/dL Calcium panel 03/08/24 Range/Units 13:14 Calcium 8.8 (8.4-10.2) mg/dL Albumin 3.9 (3.5-5.0) g/dL Pituitary panel 03/08/24 Range/Units 13:14 Sodium 138 (137-145) mmol/L Potassium 4.3 (3.5-5.1) mmol/L Chloride 107 (98-107) mmol/L Carbon Dioxide 28 (22-30) mmol/L BUN 14 (7-17) mg/dL Creatinine 0.67 (0.52-1.04) mg/dL Glucose 83 (74-99) mg/dL Calcium 8.8 (8.4-10.2) mg/dL Adrenal panel 03/08/24 Range/Units 13:14 Sodium 138 (137-145) mmol/L Potassium 4.3 (3.5-5.1) mmol/L Chloride 107 (98-107) mmol/L Carbon Dioxide 28 (22-30) mmol/L BUN 14 (7-17) mg/dL Creatinine 0.67 (0.52-1.04) mg/dL Glucose 83 (74-99) mg/dL Calcium 8.8 (8.4-10.2) mg/dL Total Bilirubin 0.5 (0.2-1.3) mg/dL AST 19 (14-36) U/L ALT 16 (4-34) U/L Alkaline Phosphatase 50 (38-126) U/L Total Protein 6.2 L (6.3-8.2) g/dL Albumin 3.9 (3.5-5.0) g/dL
[2024-03-08] MEDS: SCOPOLAMINE 1 MG/72 HR PATCH TRANSDERM STA (17:32)
[2024-03-08] MEDS: HEPARIN SODIUM,PORCINE 5,000 UNIT/ML 1 ML VIAL SQ STA (17:33)
[2024-03-08] MEDS ORDERED: MIDAZOLAM 2 MG/2 ML VIAL ONE (17:43)
[2024-03-08] MEDS ORDERED: NEOSTIGMINE 1 MG/ML 10 ML VIAL ONE (17:43)
[2024-03-08] MEDS ORDERED: LIDOCAINE 1% INJ 10MG/ML (20 ML MDV) ONE (17:43)
[2024-03-08] MEDS ORDERED: fentaNYL (PF) 50 MCG/ML 2 ML AMP ONE (17:43)
[2024-03-08] MEDS ORDERED: ROCURONIUM 10 MG/ML (5 ML VIAL) IV ONE (17:43)
[2024-03-08] MEDS ORDERED: GLYCOPYRROLATE 0.2 MG/ML 2 ML VIAL ONE (17:43)
[2024-03-08] MEDS ORDERED: SUCCINYLCHOLINE CHLORIDE 200 MG/10 ML VIAL IV ONE (17:43)
[2024-03-08] MEDS ORDERED: HYDROmorphone (PF) 1 MG/ML ONE (17:43)
[2024-03-08] MEDS ORDERED: PROPOFOL 10 MG/ML 20 ML VIAL IV ONE (17:43)
[2024-03-08] MEDS ORDERED: KETOROLAC 30 MG/ML 1 ML VIAL ONE (17:43)
[2024-03-08] MEDS: LACTATED RINGERS 1,000 ML IV ONE ×3 (17:45→21:40)
[2024-03-08] MEDS: LIDOCAINE 1%-EPI 1:100,000 20 ML VIAL SQ ONE (18:07)
[2024-03-08] MEDS: HYDROmorphone 0.5 MG/0.5 ML SYRINGE IVP STA (20:23)
[2024-03-08] MEDS: MEPERIDINE 50 MG/ML SYRINGE IVP STA (20:28)
[2024-03-08] MEDS: LORazepam 2 MG/ML INJ IV STA (20:40)
[2024-03-08] MEDS ORDERED: LORazepam 2 MG/ML INJ IV PRN (20:55)
[2024-03-08] MEDS: PANTOPRAZOLE 40 MG/10 ML VIAL IV SCH (22:04)
[2024-03-09] MEDS: HYDROmorphone 2 MG/ML 1 ML SYRINGE IVP PRN (00:21)
[2024-03-09] MEDS: INDOCYANINE GREEN 25 MG VIAL IV STA (07:25)
[2024-03-09] MEDS: TAMSULOSIN 0.4 MG CAP.ER.24H PO SCH (13:29)
[2024-03-09] MEDS: clonazePAM 0.5 MG TAB PO PRN (13:48)
--- NOTE | 2024-03-09 15:16 | P.OP ---
Date of Procedure: 03/08/24 Description of Procedure: SURGEON: ISABEL MCCABE MD PREOPERATIVE DIAGNOSES: 1. Acute on chronic cholecystitis 2. Intractable epigastric abdominal pain 3. Intractable left upper quadrant abdominal pain 4. Bipolar disorder 5. Generalized anxiety disorder 6. Panic disorder 7. History of gastric bypass, status post massive weight loss of 170 pounds 8. Gastroesophageal reflux disease 9 Supraventricular tachycardia POSTOPERATIVE DIAGNOSES: 1. Small bowel obstruction due to internal hernia and small bowel volvulus 2. Acute on chronic cholecystitis 3. Mesenteric ischemia due to small bowel volvulus 4. Bipolar disorder 5. Generalized anxiety disorder 6. Panic disorder 7. History of gastric bypass, status post massive weight loss of 170 pounds 8. Gastroesophageal reflux disease 9 Supraventricular tachycardia 10. Internal hernia with small bowel obstruction 11. Intra-abdominal adhesions, left upper quadrant 12. Moderate fecal stasis with constipation OPERATION: 1. Robotic-assisted da Zen Xi laparoscopic cholecystectomy, multiport with FIREFLY 2. Robotic-assisted da Zen Xi laparoscopic lysis of adhesions 3. Robotic-assisted da Zen Xi laparoscopic reduction of small bowel volvulus and internal hernia 4. Robotic-assisted da Zen Xi laparoscopicClosure of internal hernia x 2, Petersons defect and jejunojejunostomy defect of enterotomy ESTIMATED BLOOD LOSS: 10 mL. SPECIMENS REMOVED: Gallbladder. COMPLICATIONS: None. OPERATIVE FINDINGS: 1. Moderate scarring over entire gallbladder with peritoneal adhesions, pericholecystic with features of acute on chronic cholecystitis 2. Perihepatic and perigastric adhesions were lysed 3. Small bowel volvulus through Petersons defect with mesenteric ischemia reduced 4. Internal hernia involving jejunojejunostomy and Petersons defect degraded secondary to extensive weight loss, closed 5. Small bowel serosal defect, 3 mm, oversewn at proximal ileum 6. No ventral hernias identified. 7. Long mesentery of the small bowel with small bowel volvulus reduced 8. Abnormal adhesions of biliopancreatic limb jejunostomy to carlos limb divided 9. Highly redundant transverse colon with moderate stool retention 10. Double docking of the robot performed to address cholecystectomy and inter nal hernia small bowel volvulus 11. Intrahepatic gallbladder INDICATIONS: The patient is a 34-year-old female who presents with symptomatic gallstones. Robotic assisted laparoscopic approach was described. Benefits and risks of the procedure including but not limited to bleeding, infection, injury to the biliary tree was described. Informed consent was obtained. DESCRIPTION OF PROCEDURE: Patient was brought to the operating room, placed in supine position. After general induction, the abdomen had been prepped and draped in standard sterile fashion. The robotic da Zen XI system was primed. After a timeout protocol was performed, the patient had been prepped and draped in standard sterile fashion. The patient was injected with indocyanine green. A 5 mm 0 degrees laparoscopic trocar entry was performed along the left upper quadrant. The abdomen insufflated to 15 mmHg pressure which was tolerated well. Diagnostic laparoscopy demonstrated no injury to bowel viscera or mesentery. The liver surface was unremarkable. Next, two 8 mm robotic ports were placed along the right upper abdomen. The camera 8-mm port was maintained along the epigastrium. Another 8 mm port was placed along the left upper abdominal wall after exchanging the 5 mm port. Please note that the ports were placed at least 10 to 15 cm away from the target anatomy of the gallbladder. The robot was docked along the left lateral abdomen. The patient was repositioned in reverse Trendelenburg position at 25 degrees Trendelenburg. Using a grasper for arm 3, a grasper for arm 4, including hook cautery for arm 1, the robotic system was docked and primed as described. Instruments were interchanged by the licensed loan officer assistant including hook cautery, Bovie cautery and clip appliers. I had sat at the console. The gallbladder was scarred with peritoneal adhesions consistent with chronic cholecystitis. Lysis of adhesions was performed to free the gallbladder from the surrounding tissues. Intrahepatic gallbladder was identified emanating through the liver surface. Dome down technique was performed from the gallbladder fundus towards the infundibulum. Mild spillage of bile occurred with closure of the defect at the fundus using 2 clips. Bile was cleaned from the abdomen using 4 x 4 gauze. Next attention was brought to the infundibulum and cystic structures. The infundibulum and cystic duct were dissected free from surrounding tissues. The cystic duct was isolated. FIREFLY was used to identify the cystic artery and cystic structures. A critical view of safety was obtained. Large PLASTIC clips were used throughout the entire case. Using a clip safety aide, 2 clips were placed at the junction of the infundibulum and cystic duct. The cystic duct was divided between clips. Next, the cystic artery was similarly clipped and cauterized. Bleeding from the cystic artery was additionally dressed using hook cautery until all bleeding had stopped. Electro-Bovie cautery was used to remove the gallbladder from the hepatic fossa. Hemostasis was checked and found to be adequate. Attention was brought to the left upper quadrant where no ventral hernias were identified of the patient's pain however the root of the mesentery was twisted in a 270 degree fashion counterclockwise creating mesenteric ischemia. With this finding, small bowel volvulus secondary to internal hernia was identified. The robot was undocked to reposition for docking along the right lateral abdominal wall. I scrubbed into the case to place additional two 8 mm trocars were placed along the right upper quadrant and right lower quadrant under direct visualization. The robot was redocked. Instruments including graspers and hook cautery were interchanged by the licensed loan officer assistant. I had sat at the console. The small bowel was investigated from the terminal ileum to the ligament of Treitz with finding of redundant mesentery with active small bowel volvulus involving the entire Carlos limb and common channel via Petersons defect. The mesentery was mildly ischemic. A patent jejunojejunostomy mesenteric defect was found as the small bowel was being reduced from the volvulus and internal hernia. Small 3 mm serosal defect at the mid ileum was identified and oversewn using interrupted Lembert sutures using 3-0 silk x 2. Abnormal adhesions to the jejunojejunostomy was identified and divided with cautery and vessel sealer. The mesentery small bowel volvulus were reduced. Adhesion of gastrojejunal anastomosis to the was lysed using hook cautery. The Petersons defect was closed using green suture 2-0 VLOC and the jejunojejunostomy mesenteric defect was similarly closed. The small bowel was viable.The robot was undocked. I re-scrubbed into the case. Using a 10 mm Endo Catch bag via the left upper quadrant incision, the specimen was removed from the abdominal cavity. All pneumoperitoneum instruments were evacuated from the abdominal cavity. The incisions were reapproximated using 4-0 Monocryl in an interrupted subcuticular fashion. Fascial defects were less than 8 mm in size. Please note along the trocar sites, local anesthetic was placed as a field block prior to insertion of all instruments. Liquid glue was applied to the skin. At the end of the procedure needle, sponge, and instrument count had been verified correct by the ophthalmology surgical technician. The patient was transferred to postanesthesia care unit in stable condition. Intraoperative films were shared with the patient's family.
--- NOTE | 2024-03-09 15:20 | P.PN ---
Subjective Progress Note Date: 03/09/24 CHIEF COMPLAINT: Bowel obstruction HISTORY OF PRESENT ILLNESS: The patient is a 34-year-old female admitted with cholecystitis with new intraoperative findings of bowel obstruction due to internal hernia as well as sigmoid volvulus with mesenteric ischemia. She underwent reduction and repair of internal hernia including cholecystectomy. This morning, patient has acute urinary retention with over 500 600 cc recently drained. She reports appropriate diffuse tenderness postsurgical. "I still have pain in the left upper quadrant." Patient has had anxiety preoperatively including postoperatively. ROS: No reports of nausea and vomiting. No bowel movements. No fevers or chills. No new chest pain. No productive sputum PHYSICAL EXAM: VITAL SIGNS: Reviewed CONSTITUTIONAL: Well developed and in no acute distress. EYES: Conjuctivae without sclera icterus. Extraocular movements grossly intact. HEAD, EARS, NOSE, THROAT: Moist buccal mucosa. Head is atraumatic, normocephalic. Hears conversational speech. No nasal drainage. RESPIRATORY: Non-labored respirations and equal bilateral excursions. CARDIOVASCULAR: Palpable 2+ radial pulses. ABDOMEN: Incisions clean dry intact. MUSCULOSKELETAL: No gross deformity of the lower extremities noted. No clubbing. No cyanosis. SKIN: Good skin turgor. Well perfused. NEUROLOGIC: Cranial nerves II through XII grossly intact. No focal or lateralizing signs. PSYCH: Appropriate affect. Alert and oriented to person, place and time. CLINICAL LABS: Reviewed. No new labs at this time. ASSESSMENT: 1. Acute small bowel obstruction due to internal hernia sigmoid volvulus 2. Acute mesenteric ischemia due to internal hernia sigmoid volvulus 3. Acute on chronic cholecystitis 4. Acute urinary retention PLAN: 1. Due to the patient's presentation of partial small bowel obstruction, mesenteric ischemia and acute chronic cholecystitis, inpatient admission advised. 2. Flomax scheduled for urinary retention 3. Diet as tolerated 4. Patient may shower 5. Continue full inpatient hospitalization due to multiple acute and life-th reatening events Objective - Vital Signs Vital signs: Vital Signs Temp 98.7 F 03/09/24 07:32 Pulse 74 03/09/24 07:32 Resp 18 03/09/24 07:32 BP 118/76 03/09/24 07:32 Pulse Ox 100 03/09/24 07:32 FiO2 Intake & Output 03/08/24 03/09/24 03/09/24 18:59 06:59 18:59 Intake Total 850 1200 Output Total 10 850 Balance 850 1190 -850 Weight 88.904 kg Intake: IV 850 1200 Output: Urine 850 Straight 850 Estimated Blood Loss 10 Other: Voiding Method Toilet # Voids 1 2 - Labs CBC & Chem 7: 03/08/24 13:14
[2024-03-09] MEDS: CYCLOBENZAPRINE 10 MG TAB PO SCH (15:32)
[2024-03-09] MEDS: KETOROLAC 15 MG/ML 1 ML VIAL IVP SCH (15:32)
[2024-03-09] MEDS: TAMSULOSIN 0.4 MG CAP.ER.24H PO STA (15:33)
[2024-03-09] MEDS: bisacodyL 5 MG TABLET.DR PO SCH (16:31)
[2024-03-09] MEDS: ACETAMINOPHEN IV (For NPO) 1,000 MG in EMPTY BAG 1 BAG IVPB SCH (17:13)
[2024-03-09] MEDS: SIMETHICONE 40 MG/0.6 ML DROPS 2,000 MG/30 ML BOTTLE PO SCH (17:32)
[2024-03-09] MEDS: lamoTRIgine 100 MG TAB PO SCH (22:34)
[2024-03-10 08:41] VITALS: BP 96/60; PULSE 85; RESP 16; TEMP 98.2
--- NOTE | 2024-03-10 10:02 | P.PN ---
Subjective Progress Note Date: 03/10/24 CHIEF COMPLAINT: Bowel obstruction HISTORY OF PRESENT ILLNESS: The patient is a 34-year-old female admitted with cholecystitis including bowel obstruction and mesenteric ischemia due to internal hernia and small bowel volvulus. She reports today abdominal pain is moderately resolved in the past 2 days. Patient is tolerating diet. She is ready to go home. She is voiding spontaneously. ROS: No reports of nausea and vomiting. No bowel movements. No fevers or chills. No new chest pain. No productive sputum PHYSICAL EXAM: VITAL SIGNS: Reviewed CONSTITUTIONAL: Well developed and in no acute distress. EYES: Conjuctivae without sclera icterus. Extraocular movements grossly intact. HEAD, EARS, NOSE, THROAT: Moist buccal mucosa. Head is atraumatic, normocephalic. Hears conversational speech. No nasal drainage. RESPIRATORY: Non-labored respirations and equal bilateral excursions. CARDIOVASCULAR: Palpable 2+ radial pulses. ABDOMEN: Incisions clean dry intact. MUSCULOSKELETAL: No gross deformity of the lower extremities noted. No clubbing. No cyanosis. SKIN: Good skin turgor. Well perfused. NEUROLOGIC: Cranial nerves II through XII grossly intact. No focal or lateralizing signs. PSYCH: Appropriate affect. Alert and oriented to person, place and time. CLINICAL LABS: Reviewed. No new labs at this time. ASSESSMENT: 1. Acute small bowel obstruction due to internal hernia sigmoid volvulus 2. Acute mesenteric ischemia due to internal hernia sigmoid volvulus 3. Acute on chronic cholecystitis 4. Acute urinary retention, resolved PLAN: 1. Close outpatient follow-up at the bariatric center described 2. Lactulose for chronic constipation 3. Patient stable for discharge Objective - Vital Signs Vital signs: Vital Signs Temp 98.2 F 03/10/24 07:02 Pulse 85 03/10/24 07:02 Resp 16 03/10/24 07:02 BP 96/60 03/10/24 07:02 Pulse Ox 97 03/10/24 07:02 FiO2 Intake & Output 03/09/24 03/10/24 03/10/24 19:59 06:59 18:59 Output Total 500 Balance -500 Output: Urine 500 Straight Other: # Voids - Labs CBC & Chem 7: 03/08/24 13:14
--- NOTE | 2024-03-10 10:07 | P.DS ---
Providers Date of admission: 03/08/24 12:13 Expected date of discharge: 03/10/24 Attending physician: Janet Jane Consults: 03/08/24 13:02 Consult Physician Routine Consulting Provider: [facility] Consult Reason/Comments: [facility] Do you want consulting provider notified?: Yes Primary care physician: [facility] Course: POSTOPERATIVE DIAGNOSES: 1. Small bowel obstruction due to internal hernia and small bowel volvulus 2. Acute on chronic cholecystitis 3. Mesenteric ischemia due to small bowel volvulus 4. Bipolar disorder 5. Generalized anxiety disorder 6. Panic disorder 7. History of gastric bypass, status post massive weight loss of 170 pounds 8. Gastroesophageal reflux disease 9 Supraventricular tachycardia 10. Internal hernia with small bowel obstruction 11. Intra-abdominal adhesions, left upper quadrant 12. Moderate fecal stasis with constipation COURSE: The patient is a 34-year-old female whose had a least 2 weeks of epigastric including left upper quadrant abdominal pain. She went to a local emergency room at [facility] was diagnosed with symptomatic gallstones. Patient reported severe abdominal pain and presented to the emergency room and underwent emergent cholecystectomy. Intraoperative findings demonstrated additional findings of mesenteric ischemia including bowel obstruction due to distal small bowel volvulus. She underwent lysis of adhesions. Postoperatively, she was passing flatus, tolerating diet, pain had resolved. Close outpatient follow-up with the bariatric center described. Patient was stable for discharge. Procedures: OPERATION: 1. Robotic-assisted da Zen Xi laparoscopic cholecystectomy, multiport with FIREFLY 2. Robotic-assisted da Zen Xi laparoscopic lysis of adhesions 3. Robotic-assisted da Zen Xi laparoscopic reduction of small bowel volvulus and internal hernia 4. Robotic-assisted da Zen Xi laparoscopicClosure of internal hernia x 2, Petersons defect and jejunojejunostomy defect of enterotomy ESTIMATED BLOOD LOSS: 10 mL. SPECIMENS REMOVED: Gallbladder. COMPLICATIONS: None. OPERATIVE FINDINGS: 1. Moderate scarring over entire gallbladder with peritoneal adhesions, pericholecystic with features of acute on chronic cholecystitis 2. Perihepatic and perigastric adhesions were lysed 3. Small bowel volvulus through Petersons defect with mesenteric ischemia reduced 4. Internal hernia involving jejunojejunostomy and Petersons defect degraded secondary to extensive weight loss, closed 5. Small bowel serosal defect, 3 mm, oversewn at proximal ileum 6. No ventral hernias identified. 7. Long mesentery of the small bowel with small bowel volvulus reduced 8. Abnormal adhesions of biliopancreatic limb jejunostomy to zina limb divided 9. Highly redundant transverse colon with moderate stool retention 10. Double docking of the robot performed to address cholecystectomy and inte rnal hernia small bowel volvulus 11. Intrahepatic gallbladder Patient Condition at Discharge: Good Plan - Discharge Summary Discharge Rx Participant: No New Discharge Prescriptions: New Lactulose [Cephulac] 20 gm PO BID #500 ml Simethicone [Gas-X] 125 mg PO AC-TID PRN #20 capsule PRN Reason: Pain Acetaminophen Tab [Tylenol Tab] 1,000 mg PO Q6HR PRN #30 tablet PRN Reason: Pain Continue clonazePAM [KlonoPIN] 0.5 mg PO DAILY PRN PRN Reason: Anxiety lamoTRIgine [LaMICtal] 100 mg PO HS Discharge Medication List clonazePAM [KlonoPIN] 0.5 mg PO DAILY PRN 09/28/22 [History] lamoTRIgine [LaMICtal] 100 mg PO HS 03/08/24 [History] Acetaminophen Tab [Tylenol Tab] 1,000 mg PO Q6HR PRN #30 tablet 03/10/24 [Rx] Lactulose [Cephulac] 20 gm PO BID #500 ml 03/10/24 [Rx] Simethicone [Gas-X] 125 mg PO AC-TID PRN #20 capsule 03/10/24 [Rx] Follow up Appointment(s)/Referral(s): Fabian Ling MD [Primary Care Provider] - 1-2 days Bariat[facility] [place], [place] [NON-STAFF] - 03/13/24 3:00 pm Patient Instructions/Handouts: Bowel Obstruction (DC), Laparoscopic Cholecystectomy (DC) Activity/Diet/Wound Care/Special Instructions: NO LONG DRIVES OR AIRPLANE RIDES OVER 60 MINUTES FOR THE NEXT 2 WEEKS, 03/24/24, DUE TO HIGH RISK OF PULMONARY EMBOLISM/DVTs May drive in 72 hrs, 03/13/24 No lifting over 10 pounds in 2 weeks until 03/24/24 May shower. No bath tub soaks for two weeks until 03/24/24 Diet as tolerated. Use Tylenol, simethicone scheduled for the next 24-48 hours for best pain relief. Use ice along incisions for today to prevent swelling. Discharge Disposition: HOME SELF-CARE
== END 2024-03-10 11:42 | disposition home or self-care (01) | DRG 224 ==
LOC: EC 11:06 → 4SSUR 12:13
PROVIDERS: ADMIT Surgery Plastic and Reconstructive Surgery; ATTEND Surgery Plastic and Reconstructive Surgery
PROC: 0DNW4ZZ Release Peritoneum, Percutaneous Endoscopic Approach (ICD-10-PCS; principal; 2024-03-08 08:20)
PROC: 0DSB4ZZ Reposition Ileum, Percutaneous Endoscopic Approach (ICD-10-PCS; principal; 2024-03-08 08:20)
PROC: 0FT44ZZ Resection of Gallbladder, Percutaneous Endoscopic Approach (ICD-10-PCS; principal; 2024-03-08 08:20)
PROC: BF532Z0 Other Imaging of Gallbladder and Bile Ducts using Fluorescing Agent, Intraoperative (ICD-10-PCS; principal; 2024-03-08 08:20)
PROC: 8E0W4CZ Robotic Assisted Procedure of Trunk Region, Percutaneous Endoscopic Approach (ICD-10-PCS; principal; 2024-03-08 08:20)
PROC: 0DQV4ZZ Repair Mesentery, Percutaneous Endoscopic Approach (ICD-10-PCS; principal; 2024-03-08 08:20)
DX: K46.0 Unspecified abdominal hernia with obstruction, without gangrene (principal); K55.059 Acute (reversible) ischemia of intestine, part and extent unspecified; K56.50 Intestinal adhesions [bands], unspecified as to partial versus complete obstruction; K56.2 Volvulus; I10 Essential (primary) hypertension; K80.12 Calculus of gallbladder with acute and chronic cholecystitis without obstruction; Q44.1 Other congenital malformations of gallbladder; K21.9 Gastro-esophageal reflux disease without esophagitis; K55.019 Acute (reversible) ischemia of small intestine, extent unspecified; R63.4 Abnormal weight loss; K59.89 Other specified functional intestinal disorders; K59.00 Constipation, unspecified; I47.10 Supraventricular tachycardia, unspecified; F31.9 Bipolar disorder, unspecified; R33.9 Retention of urine, unspecified; F41.0 Panic disorder [episodic paroxysmal anxiety]; F41.1 Generalized anxiety disorder; Z68.27 Body mass index [BMI] 27.0-27.9, adult; Z87.891 Personal history of nicotine dependence; Z98.84 Bariatric surgery status; Z28.21 Immunization not carried out because of patient refusal; Z79.899 Other long term (current) drug therapy
CPT/HCPCS: 80053; 84703; 88304; 96360; 96361; 99285

== ENCOUNTER → 2024-03-20 | Outpatient (CLI) | payer OTHER ==
[2024-03-20 15:02] VITALS: BP 113/75; PULSE 80; RESP 16; TEMP 98.3; BMI 27.3
--- NOTE | 2024-03-20 15:26 | P.BASOAP ---
Subjective Progress Note Date: 03/20/24 SHe reports trouble passing gas. She had BM since surgery. She had stuff out lost 4 pounds. She reports she cannot fart. NO veggies food. She does eat broccoli. She eats salad. 163 pounds. Highest 356 pounds. Objective - Vital Signs Vital signs: Vital Signs Temp 98.3 F 03/20/24 14:51 Pulse 80 03/20/24 14:51 Resp 16 03/20/24 14:51 BP 113/75 03/20/24 14:51 Pulse Ox FiO2 Intake & Output 03/19/24 03/20/24 03/20/24 18:59 06:59 18:59 Weight 87.543 kg Assessment/Plan Plan: Date: 03/20/24 Initial Weight: 155.582 kg Initial BMI: 48.5 Current Weight: 87.543 kg Current BMI: 27.3 Type of Surgery: Total Volume in Band: Previous Volume: Volume Removed: Volume Added: Band Size:
== END ==
LOC: BARWHC3 14:01
PROVIDERS: ATTEND Surgery Plastic and Reconstructive Surgery
DX: E66.01 Morbid (severe) obesity due to excess calories (principal); Z68.27 Body mass index [BMI] 27.0-27.9, adult
CPT/HCPCS: 99211

== ENCOUNTER 2024-05-25 14:42 | Emergency (ER) | payer BC, OTHER ==
[2024-05-25 14:48] VITALS: BP 125/67; PULSE 84; RESP 16; TEMP 98.6
--- NOTE | 2024-05-25 15:05 | ED ---
Abdominal Pain HPI - General Chief Complaint: Abdominal Pain Stated Complaint: ABD Pain/Constipation Time Seen by Provider: 05/25/24 14:48 Source: patient, RN notes reviewed Mode of arrival: ambulatory Limitations: no limitations - History of Present Illness Initial Comments: This is a 34-year-old female [id number] with a history of gastric bypass and sleeve placement 1.5 years ago and cholecystectomy (follows with Dr. Jane), presenting to the emergency departmentw with abdominal pain and nausea. Patient states that over the past 2 days she has been having a left upper quadrant abdominal pain and over the past day she has not passed gas. Patient is concerned that she may have a bowel obstruction as symptoms are same as when she had an obstruction in March 2024. Patient endorses nausea with no reported emesis. Denies fevers, chills, urinary complaints. Patient is approximately 8 weeks with last menses on 03/29/24. she denies vaginal bleednig or suprapubic cramping. Last bowel movement was yesterday with no melena or hematoc hezia. - Related Data Home Medications Medication Instructions Recorded Confirmed clonazePAM [KlonoPIN] 0.5 mg PO DAILY PRN 09/28/22 03/20/24 lamoTRIgine [LaMICtal] 100 mg PO HS 03/08/24 03/20/24 Previous Rx's Medication Instructions Recorded Acetaminophen Tab [Tylenol Tab] 1,000 mg PO Q6HR PRN #30 tablet 03/10/24 Lactulose [Cephulac] 20 gm PO BID #500 ml 03/10/24 Simethicone [Gas-X] 125 mg PO AC-TID PRN #20 capsule 03/10/24 Lactulose [Cephulac] 20 gm PO BID #500 ml 05/25/24 Allergies Allergy/AdvReac Type Severity Reaction Status Date / Time No Known Allergies Allergy Verified 03/20/24 14:53 Review of Systems ROS Statement: Those systems with pertinent positive or pertinent negative responses have been documented in the HPI. ROS Other: All systems not noted in ROS Statement are negative. Past Medical History Past Medical History: Blood Disorder, GERD/Reflux, Hypertension, Supraventricular Tachycardia (SVT) Additional Past Medical History / Comment(s): anemia. pre-eclamspia. small bowel obstruction History of Any Multi-Drug Resistant Organisms: None Reported Past Surgical History: Adenoidectomy, Appendectomy, Bariatric Surgery, Cardiac Ablation, Cholecystectomy, Hernia Repair, Tonsillectomy Additional Past Surgical History / Comment(s): emergency D & C - 2016. appendectomy - 2004. cardiac ablation - 2019. RYGB 11/21/22, Lap Olga/Lysis of A dhesions/internal hernia repair Past Anesthesia/Blood Transfusion Reactions: Previous Problems w/ Anesthesia Additional Past Anesthesia/Blood Transfusion Reaction / Comment(s): emotional/angry waking up from anesthesia Past Psychological History: Anxiety, Bipolar, Panic Disorder Smoking Status: Former smoker Past Alcohol Use History: Occasional Past Drug Use History: Marijuana - Past Family History Mother Family Medical History: Hypertension, Myocardial Infarction (DC) General Exam Limitations: no limitations General appearance: alert, in no apparent distress Respiratory exam: Present: normal lung sounds bilaterally. Absent: respiratory distress, wheezes, rales, rhonchi, stridor Cardiovascular Exam: Present: regular rate, normal rhythm, normal heart sounds. Absent: systolic murmur, diastolic murmur, rubs, gallop, clicks GI/Abdominal exam: Present: soft, tenderness (LUQ), normal bowel sounds. Absent: distended, guarding, rebound, rigid Extremities exam: Present: normal inspection, full ROM, normal capillary refill. Absent: tenderness, pedal edema, joint swelling, calf tenderness Back exam: Present: normal inspection. Absent: CVA tenderness (R), CVA tenderness (L) Course Vital Signs 05/25/24 14:45 Temperature 98.6 F Pulse Rate 84 Respiratory 16 Rate Blood Pressure 125/67 O2 Sat by Pulse 99 Oximetry Medical Decision Making - Medical Decision Making Was pt. sent in by a medical professional or institution (, PA, SALES REPRESENTATIVE SUPERVISOR, urgent care, hospital, or detention...) When possible be specific @ -No Did you speak to anyone other than the patient for history (EMS, parent, family, police, friend...)? What history was obtained from this source @ -No Did you review nursing and triage notes (agree or disagree)? Why? @ -I reviewed and agree with nursing and triage notes Were old charts reviewed (outside hosp., previous admission, EMS record, old EKG, old radiological studies, urgent care reports/EKG's, detention records)? Report findings @ -Reviewed patient's emergency room visit note from 03/08/24 where she reported with epigastric abdominal pain and was admitted for cholecystectomy. Differential Diagnosis (chest pain, altered mental status, abdominal pain women, abdominal pain men, vaginal bleeding, weakness, fever, dyspnea, syncope, headache, dizziness, GI bleed, back pain, seizure, CVA, palpatations, mental health, musculoskeletal)? @ -Differential Abdominal Pain Women: Appendicitis, Cholecystitis, diverticulosis, ischemic bowel, pancreatitis, hepatitis, UTI, gastroenteritis, AAA, incarcerated hernia, bowel obstruction, constipation, inflammatory bowel, hepatitis, peptic ulcer disease, splenic infarction, perforated viscus, vulvitis, ovarian torsion, PID, kidney stone, placenta abruption, this is not meant to be an all-inclusive list EKG interpreted by me (3pts min.). @ -None X-rays interpreted by me (1pt min.). @ -X-ray KUB reveals nonspecific bowel gas pattern without evidence for acute process. CT interpreted by me (1pt min.). @ -None done U/S interpreted by me (1pt. min.). @ -None done What testing was considered but not performed or refused? (CT, X-rays, U/S, labs)? Why? @ -None What meds were considered but not given or refused? Why? @ -None Did you discuss the management of the patient with other professionals (professionals i.e. , PA, SALES REPRESENTATIVE SUPERVISOR, lab, RT, psych nurse, social media assistant, production specialist, teacher, commercial escrow officer, medical case manager)? Give summary @ -Spoke with patient's general surgeon, Dr. Jane, who has recommended patient undergo XR KUB to evaluate with least minimal radiation expsure for SBO. physician independently interpreted x-ray imaging as well as impression which are unremarkable. Physician recommends prescription for lactulose sent to pharmacy and patient to continue taking stool softeners Was smoking cessation discussed for >3mins.? @ -No Was critical care preformed (if so, how long)? @ -No Were there social determinants of health that impacted care today? How? (Homelessness, low income, unemployed, alcoholism, drug addiction, transportation, low edu. Level, literacy, decrease access to med. care, alf, rehab)? @ -No Was there de-escalation of care discussed even if they declined (Discuss DNR or withdrawal of care, Hospice)? DNR status @ -No What co-morbidities impacted this encounter? (DM, HTN, Smoking, COPD, CAD, Cancer, CVA, ARF, Chemo, Hep., AIDS, mental health diagnosis, sleep apnea, morbid obesity)? @ -None Was patient admitted / discharged? Hospital course, mention meds given and route, prescriptions, significant lab abnormalities, going to OR and other pertinent info. @ -Discharge. 34 year old female presenting with left upper quadrant abdominal pain and decrease in appetite. Abdominal examination remarkable for tenderness to palpation in the left upper quadrant however abdomen is soft with no signs of rebound tenderness or rigidity. Patient is provided with fluids and antiemetics pending laboratory results. Labs including CBC, CMP, lactic acid within normal limits[place] [address]. Urinalysis unremarkable. Spoke with patient's general surgeon who is recommended she undergo x-ray imaging of the abdomen. Independent review of x-ray of the abdomen by general surgeon is unremarkable as interpreted by radiologist. Additionally, patient is stating that she has had nothing to eat today and has an appetite. Additionally, pain is controlled despite medications and she has had no episodes of emesis and is tolerating oral intake with fluids while in the emergency department. The patient is comfortable for discharge with outpatient prescription for lactulose to take for constipation. Recommend that she follow- up as scheduled with OB this week and general surgeon. Discussed with Dr. Zeny lawrnece Undiagnosed new problem with uncertain prognosis? @ -No Drug Therapy requiring intensive monitoring for toxicity (Heparin, Nitro, Insulin, Cardizem)? @ -No Were any procedures done? @ -No Diagnosis/symptom? @ -Constipation, abdominal pain Acute, or Chronic, or Acute on Chronic? @ -acute Uncomplicated (without systemic symptoms) or Complicated (systemic symptoms)? @ -uncomplicated Side effects of treatment? @ -No Exacerbation, Progression, or Severe Exacerbation? @ -No Poses a threat to life or bodily function? How? (Chest pain, USA, DC, pneumonia, PE, COPD, DKA, ARF, appy, cholecystitis, CVA, Diverticulitis, Homicidal, Suicidal, threat to staff... and all critical care pts) @ -No - Lab Data Result diagrams: 05/25/24 15:04 05/25/24 15:04 Lab Results 05/25/24 05/25/24 05/25/24 Range/Units 15:04 15:04 15:04 WBC 9.2 (3.8-10.6) k/uL RBC 4.38 (3.80-5.40) m/uL Hgb 12.5 (11.4-16.0) gm/dL Hct 36.5 (34.0-46.0) % MCV 83.3 (80.0-100.0) fL MCH 28.4 (25.0-35.0) pg MCHC 34.2 (31.0-37.0) g/dL RDW 12.6 (11.5-15.5) % Plt Count 214 (150-450) k/uL MPV 7.8 Neutrophils % 74 % Lymphocytes % 18 % Monocytes % 5 % Eosinophils % 1 % Basophils % 0 % Neutrophils # 6.8 (1.3-7.7) k/uL Lymphocytes # 1.6 (1.0-4.8) k/uL Monocytes # 0.4 (0-1.0) k/uL Eosinophils # 0.1 (0-0.7) k/uL Basophils # 0.0 (0-0.2) k/uL Sodium 136 L (137-145) mmol/L Potassium 4.5 (3.5-5.1) mmol/L Chloride 106 (98-107) mmol/L Carbon Dioxide 21 L (22-30) mmol/L Anion Gap 9 mmol/L BUN 9 (7-17) mg/dL Creatinine 0.54 (0.52-1.04) mg/dL Est GFR (CKD-EPI)AfAm >90 (>60 ml/min/1.73 sqM) Est GFR (CKD-EPI)NonAf >90 (>60 ml/min/1.73 sqM) Glucose 85 (74-99) mg/dL Plasma Lactic Acid Lamine (0.7-2.0) mmol/L Calcium 9.1 (8.4-10.2) mg/dL Total Bilirubin 0.2 (0.2-1.3) mg/dL AST 16 (14-36) U/L ALT 13 (4-34) U/L Alkaline Phosphatase 44 (38-126) U/L Total Protein 6.7 (6.3-8.2) g/dL Albumin 4.1 (3.5-5.0) g/dL Amylase 67 (30-110) U/L Lipase 78 (23-300) U/L HCG, Quant 23968.8 mIU/mL Urine Color Yellow Urine Appearance Clear (Clear) Urine pH 5.5 (5.0-8.0) Ur Specific [place] 1.029 (1.001-1.035) Urine Protein Negative (Negative) Urine Glucose (UA) Negative (Negative) Urine Ketones Negative (Negative) Urine Blood Negative (Negative) Urine Nitrite Negative (Negative) Urine Bilirubin Negative (Negative) Urine Urobilinogen 2.0 (<2.0) mg/dL Ur Leukocyte Esterase Small H (Negative) Urine RBC <1 (0-5) /hpf Urine WBC 1 (0-5) /hpf Ur Squamous Epith Cells 2 (0-4) /hpf Urine Mucus Many H (None) /hpf 05/25/24 Range/Units 15:06 WBC (3.8-10.6) k/uL RBC (3.80-5.40) m/uL Hgb (11.4-16.0) gm/dL Hct (34.0-46.0) % MCV (80.0-100.0) fL MCH (25.0-35.0) pg MCHC (31.0-37.0) g/dL RDW (11.5-15.5) % Plt Count (150-450) k/uL MPV Neutrophils % % Lymphocytes % % Monocytes % % Eosinophils % % Basophils % % Neutrophils # (1.3-7.7) k/uL Lymphocytes # (1.0-4.8) k/uL Monocytes # (0-1.0) k/uL Eosinophils # (0-0.7) k/uL Basophils # (0-0.2) k/uL Sodium (137-145) mmol/L Potassium (3.5-5.1) mmol/L Chloride (98-107) mmol/L Carbon Dioxide (22-30) mmol/L Anion Gap mmol/L BUN (7-17) mg/dL Creatinine (0.52-1.04) mg/dL Est GFR (CKD-EPI)AfAm (>60 ml/min/1.73 sqM) Est GFR (CKD-EPI)NonAf (>60 ml/min/1.73 sqM) Glucose (74-99) mg/dL Plasma Lactic Acid Lamine 0.9 (0.7-2.0) mmol/L Calcium (8.4-10.2) mg/dL Total Bilirubin (0.2-1.3) mg/dL AST (14-36) U/L ALT (4-34) U/L Alkaline Phosphatase (38-126) U/L Total Protein (6.3-8.2) g/dL Albumin (3.5-5.0) g/dL Amylase (30-110) U/L Lipase (23-300) U/L HCG, Quant mIU/mL Urine Color Urine Appearance (Clear) Urine pH (5.0-8.0) Ur Specific [place] (1.001-1.035) Urine Protein (Negative) Urine Glucose (UA) (Negative) Urine Ketones (Negative) Urine Blood (Negative) Urine Nitrite (Negative) Urine Bilirubin (Negative) Urine Urobilinogen (<2.0) mg/dL Ur Leukocyte Esterase (Negative) Urine RBC (0-5) /hpf Urine WBC (0-5) /hpf Ur Squamous Epith Cells (0-4) /hpf Urine Mucus (None) /hpf Disposition Clinical Impression: Constipation, Abdominal pain Disposition: HOME SELF-CARE Condition: Good Instructions (If sedation given, give patient instructions): Constipation (ED) Additional Instructions: Please return to the Emergency Department if symptoms worsen or any other concerns. Prescriptions: Lactulose [Cephulac] 20 gm PO BID #500 ml Is patient prescribed a controlled substance at d/c from ED?: No Referrals: Fabian Ling MD [Primary Care Provider] - 1-2 days Time of Disposition: 18:41
[2024-05-25] MEDS: ONDANSETRON 4 MG/2 ML VIAL IVP STA (15:38)
[2024-05-25] MEDS: SODIUM CHLORIDE 0.9% 1,000 ML IV STA (15:39)
[2024-05-25 16:05] LABS: Basophils % (A) 0 %; Eosinophils # (A) 0.1 k/uL (0-0.7); Eosinophils % (A) 1 %; HCT 36.5 % (34.0-46.0); HGB 12.5 gm/dL (11.4-16.0); Lymphocytes # (A) 1.6 k/uL (1.0-4.8); Lymphocytes % (A) 18 %; MCH 28.4 pg (25.0-35.0); MCHC 34.2 g/dL (31.0-37.0); MCV 83.3 fL (80.0-100.0); Mean Platelet Volume 7.8; Monocytes # (A) 0.4 k/uL (0-1.0); Monocytes % (A) 5 %; Neutrophils # (A) 6.8 k/uL (1.3-7.7); Neutrophils % (A) 74 %; Platelet Count 214 k/uL (150-450); RBC 4.38 m/uL (3.80-5.40); RDW 12.6 % (11.5-15.5); WBC 9.2 k/uL (3.8-10.6)
[2024-05-25 16:12] LABS: ALT 13 U/L (4-34); AST 16 U/L (14-36); African American GFR (CKD) >90 (>60 ml/min/1.73 sqM); Albumin 4.1 g/dL (3.5-5.0); Alkaline Phosphatase 44 U/L (38-126); Amylase 67 U/L (30-110); Anion Gap 9 mmol/L; Blood Urea Nitrogen 9 mg/dL (7-17); Calcium 9.1 mg/dL (8.4-10.2); Carbon Dioxide 21 mmol/L (22-30); Chloride 106 mmol/L (98-107); Glucose 85 mg/dL (74-99); Lipase 78 U/L (23-300); Non-African American GFR(CKD) >90 (>60 ml/min/1.73 sqM); Potassium 4.5 mmol/L (3.5-5.1); Sodium 136 mmol/L (137-145); Total Bilirubin 0.2 mg/dL (0.2-1.3); Total Protein 6.7 g/dL (6.3-8.2)
[2024-05-25 16:25] LABS: Appearance,Urine Clear (Clear); Bilirubin,Urine Negative (Negative); Blood,Urine Negative (Negative); Color,Urine Yellow; Glucose,Urine (UA) Negative (Negative); Ketones,Urine Negative (Negative); Leukocyte Esterase,Urine Small (Negative); Mucus,Urine Many /hpf; Nitrite,Urine Negative (Negative); PH, Urine 5.5 (5.0-8.0); Protein,Urine Negative (Negative); RBC,Urine <1 /hpf (0-5); Specific Gravity,Urine 1.029 (1.001-1.035); Squamous Epithelial Cell,Urine 2 /hpf (0-4); WBC,Urine 1 /hpf (0-5)
[2024-05-25 17:43] LABS: HCG,Quantitative Serum 71848.8 mIU/mL
--- NOTE | 2024-05-25 18:26 | XR ---
EXAMINATION TYPE: XR KUB DATE OF EXAM: 05/25/2024 6:10 PM COMPARISON: None CLINICAL INDICATION: Female, 34 years old with history of LUQ ab pain, hx SBO; PHH TECHNIQUE: One radiographic view of the abdomen was obtained. FINDINGS: The bowel gas pattern is nonspecific without dilated loops of small or large bowel. . Fecal material and gas are demonstrated throughout the colon and rectum. There is no evidence for organome jose e or pneumoperitoneum. No acute osseous process. No abnormal calcifications are present. IMPRESSION: Nonspecific bowel gas pattern without radiographic evidence for acute process. [facility], , 05/25/2024 6:24 PM
== END 2024-05-25 18:58 | disposition home or self-care (01) ==
LOC: EC 14:42
DX: K59.00 Constipation, unspecified (principal); R10.9 Unspecified abdominal pain; Z87.891 Personal history of nicotine dependence; Z90.49 Acquired absence of other specified parts of digestive tract
CPT/HCPCS: 36415; 80053; 82150; 83605; 83690; 85025; 81001; 84702; 74018; 99284; 96374; 96361; J2405